=== PATIENT | female | born 1990 | race Caucasian/White ===

== ENCOUNTER 2017-12-18 14:34 | Emergency (ER) | payer MEDICAID, SELFPAY ==
[2017-12-18 14:38] VITALS: BP 148/96; PULSE 100; RESP 16; TEMP 37; O2SAT 100
--- NOTE | 2017-12-18 14:43 | W.ED.GENAD ---
Discharge Plan Discharge Details Chief Complaint: Laceration Primary Care Provider: Mi Morales ED Provider: Mikel Yoon Home Meds and New Rx's Prescriptions: No Action lisdexamfetamine [Vyvanse] 60 MG capsule 60 mg PO DAILY RF: 0 buprenorphine-naloxone [Suboxone] 1 EACH film 14 mg PO UNKNOWN RF: 0 Medical Decision Making MDM Narrative Medical decision making narrative: 27-year-old female presents with superficial laceration to right forearm that does not penetrate through the depth of the dermis. No other injury. Anesthetized and examined in a bloodless field without evidence of foreign body. Repaired with tissue adhesive. To rest in the emergency department. Discussed home care as well as return precautions with the patient. She is stable for discharge to home. HPI - General Adult General Mode of arrival: ambulatory. Date/Time Provider Initiated Documentation: 12/18/17 14:37. Limitations to Documentation: no limitations. Information obtained by: patient. History of Present Illness 27 year old F presents to the emergency department with the chief complaint of Right arm laceration, described as mild, Quality is described as aching, and is localized to the right and upper extremity. Patient started experiencing this minute(s) and it has been constant. No relieving factors improve symptom(s), No exacerbating factors reported . Patient notes no other symptoms.. HPI Narrative: This is a 27-year-old female who talon her right arm on a sharp vase at home and suffered a small laceration to the mid forearm. No other injury. Bleeding improved with pressure. She states her tetanus status is up-to-date. She denies any numbness or tingling Related Data Home Medications Medication Instructions Recorded Confirmed buprenorphine-naloxone [Suboxone] 14 mg PO UNKNOWN 10/27/16 12/18/17 lisdexamfetamine [Vyvanse] 60 mg PO DAILY 10/27/16 12/18/17 Allergies Allergy/AdvReac Type Severity Reaction Status Date / Time No Known Allergies Allergy Unverified 12/18/17 14:41 General Stated Complaint: Laceration MARCY: 4 Review of Systems Review of Systems For systems reviewed and otherwise negative PFSH Social History Smoking/Tobacco Use Status: Current-Occasional Exam Narrative Exam Narrative: GEN: awake, alert, oriented 3. Pleasant, well groomed, interactive. HEAD: Normocephalic, atraumatic ENT: Mucous membranes moist, oropharynx unremarkable, External ear exam unremarkable EYES: PERRL, EOMI NECK: Full ROM, no HENNA, no menigismus EXT: Full ROM, no edema, no rash. Superficial abrasion/laceration, 0.5 cm, mid right ulnar forearm. Examined in a bloodless field without evidence of foreign body Neuro: Grossly normal neurologic exam, conversant, interactive. Psych: Speech fluent, thoughts congruent, affect normal Course Vital Signs Temperature 37.0 C 12/18/17 14:38 Pulse 100 H 12/18/17 14:38 Respiratory Rate 16 12/18/17 14:38 Blood Pressure 148/96 H 12/18/17 14:38 Pulse Oximetry 100 12/18/17 14:38 Temperature 37.0 C 12/18/17 14:38 Pulse 100 H 12/18/17 14:38 Respiratory Rate 16 12/18/17 14:38 Blood Pressure 148/96 H 12/18/17 14:38 Pulse Oximetry 100 12/18/17 14:38 Procedures Laceration Laceration 1: Site: upper extremity Side (If applicable): right Size (cm): 0.5 Description: linear Depth: simple, single layer Pre-repair: wound explored Skin layer closed with: other (Tissue adhesive)
--- NOTE | 2017-12-18 14:46 | ED.GENADUL_ITS ---
Discharge Plan Discharge Details Chief Complaint: Laceration Primary Care Provider: Mi Morales ED Provider: Mikel Yoon Home Meds and New Rx's Prescriptions: No Action lisdexamfetamine [Vyvanse] 60 MG capsule 60 mg PO DAILY RF: 0 buprenorphine-naloxone [Suboxone] 1 EACH film 14 mg PO UNKNOWN RF: 0 Medical Decision Making MDM Narrative Medical decision making narrative: 27-year-old female presents with superficial laceration to right forearm that does not penetrate through the depth of the dermis. No other injury. Anesthetized and examined in a bloodless field without evidence of foreign body. Repaired with tissue adhesive. To rest in the emergency department. Discussed home care as well as return precautions with the patient. She is stable for discharge to home. HPI - General Adult General Mode of arrival: ambulatory . Date/Time Provider Initiated Documentation: 12/18/17 14:37 . Limitations to Documentation: no limitations . Information obtained by: patient . History of Present Illness 27 year old F presents to the emergency department with the chief complaint of Right arm laceration, described as mild, Quality is described as aching, and is localized to the right and upper extremity. Patient started experiencing this minute(s) and it has been constant. No relieving factors improve symptom(s), No exacerbating factors reported . Patient notes no other symptoms.. HPI Narrative: This is a 27-year-old female who talon her right arm on a sharp vase at home and suffered a small laceration to the mid forearm. No other injury. Bleeding improved with pressure. She states her tetanus status is up- to-date. She denies any numbness or tingling Related Data Home Medications Medication Instructions Recorded Confirmed buprenorphine-naloxone [Suboxone] 14 mg PO UNKNOWN 10/27/16 12/18/17 lisdexamfetamine [Vyvanse] 60 mg PO DAILY 10/27/16 12/18/17 Allergies Allergy/AdvReac Type Severity Reaction Status Date / Time No Known Allergies Allergy Unverified 12/18/17 14:41 General Stated Complaint: Laceration MARCY: 4 Review of Systems Review of Systems For systems reviewed and otherwise negative PFSH Social History Smoking/Tobacco Use Status: Current-Occasional Exam Narrative Exam Narrative: GEN: awake, alert, oriented 3. Pleasant, well groomed, interactive. HEAD: Normocephalic, atraumatic ENT: Mucous membranes moist, oropharynx unremarkable, External ear exam unremarkable EYES: PERRL, EOMI NECK: Full ROM, no HENNA, no menigismus EXT: Full ROM, no edema, no rash. Superficial abrasion/laceration, 0.5 cm, mid right ulnar forearm. Examined in a bloodless field without evidence of foreign body Neuro: Grossly normal neurologic exam, conversant, interactive. Psych: Speech fluent, thoughts congruent, affect normal Course Vital Signs Temperature 37.0 C 12/18/17 14:38 Pulse 100 H 12/18/17 14:38 Respiratory Rate 16 12/18/17 14:38 Blood Pressure 148/96 H 12/18/17 14:38 Pulse Oximetry 100 12/18/17 14:38 Temperature 37.0 C 12/18/17 14:38 Pulse 100 H 12/18/17 14:38 Respiratory Rate 16 12/18/17 14:38 Blood Pressure 148/96 H 12/18/17 14:38 Pulse Oximetry 100 12/18/17 14:38 Procedures Laceration Laceration 1: Site: upper extremity Side (If applicable): right Size (cm): 0.5 Description: linear Depth: simple, single layer Pre-repair: wound explored Skin layer closed with: other (Tissue adhesive)
== END 2017-12-18 14:53 | disposition home or self-care (01) ==
LOC: ER 15:00
PROVIDERS: Emergency Provider Emergency Medicine; PCP Internal Medicine
DX: S51.811A Laceration without foreign body of right forearm, initial encounter (principal); W26.8XXA Contact with other sharp object(s), not elsewhere classified, initial encounter
CPT/HCPCS: 12001

== ENCOUNTER 2018-08-20 16:03 | Emergency (ER) | payer MEDICAID, SELFPAY ==
[2018-08-20 16:09] VITALS: BP 132/89; PULSE 109; RESP 22; TEMP 36.9; O2SAT 100
--- NOTE | 2018-08-20 16:40 | W.ED.GENAD ---
Discharge Plan Disposition Patient Disposition: HOME Condition: Improving Discharge Details Chief Complaint: DentalOral Clinical Impression: Dental abscess Primary Care Provider: Mi Morales ED Provider: Mikel Yoon Home Meds and New Rx's Prescriptions: No Action loratadine [Claritin] 10 mg Tablet 10 mg PO PRN PRNRF: 0 fluoxetine [Prozac] 20 mg Capsule 20 mg PO DAILY AM RF: 0 Vyvanse 60 MG capsule 60 mg PO DAILY RF: 0 buprenorphine-naloxone [Suboxone] 1 EACH film 14 mg PO UNKNOWN RF: 0 Discharge Instructions Instructions: Dental Abscess (ED) Additional Instructions: Warm salt water gargles 4-6 times daily. Please see enclosed dental referral sheet if you wish to change to your dentist. Take penicillin as prescribed. Return for any acute concern. Medical Decision Making 28-year-old female with small left floor of the mouth dental abscess that appears to have drained. There is no large area of fluctuance. I will place her on penicillin, she will use salt water gargles at home. She will follow-up with dentistry. She is stable for outpatient management. HPI General Mode of arrival: ambulatory. Date/Time Provider Initiated Documentation: 08/20/18 16:34. Limitations to Documentation: no limitations. Information obtained by: patient. History of Present Illness 28 year old F presents to the emergency department with the chief complaint of Small abscess on floor of mouth, described as similar to prior episodes, Quality is described as dull and constant, and is localized to the mouth and left. Patient reports no radiation. Patient started experiencing this hour(s) and it has been constant. No relieving factors improve symptom(s), No exacerbating factors reported . Patient notes no other symptoms.. Patient did receive the following treatments prior to arrival, none Related Data Home Medications Medication Instructions Recorded Confirmed Vyvanse 60 mg PO DAILY 10/27/16 08/20/18 buprenorphine-naloxone [Suboxone] 14 mg PO UNKNOWN 10/27/16 08/20/18 fluoxetine [Prozac] 20 mg PO DAILY AM 08/20/18 08/20/18 loratadine [Claritin] 10 mg PO PRN PRN 08/20/18 08/20/18 Allergies Allergy/AdvReac Type Severity Reaction Status Date / Time No Known Allergies Allergy Unverified 08/20/18 16:13 General Stated Complaint: DentalOral MARCY: 4 Review of Systems Review of Systems No fever, vomiting, change to voice or swallowing PFSH Social History Smoking/Tobacco Use Status: Current-Occasional Drug use: Never Do you feel safe in your relationship?: Yes Exam Narrative Exam Narrative: GEN: awake, alert, oriented 3. Pleasant, well groomed, interactive. HEAD: Normocephalic, atraumatic ENT: Mucous membranes moist, oropharynx with discrete swelling left mandibular premolar area on the lingual aspect without discharge or fluctuance. Tympanic membranes clear, External ear exam unremarkable EYES: PERRL, EOMI NECK: Full ROM, no HENNA, no menigismus EXT: Full ROM, no edema, no rash Neuro: Grossly normal neurologic exam, conversant, interactive. Psych: Speech fluent, thoughts congruent, affect anxious Course Vital Signs Temperature 36.9 C 08/20/18 16:09 Pulse 109 H 08/20/18 16:09 Respiratory Rate 22 08/20/18 16:09 Blood Pressure 132/89 08/20/18 16:09 Pulse Oximetry 100 08/20/18 16:09 Temperature 36.9 C 08/20/18 16:09 Pulse 109 H 08/20/18 16:09 Respiratory Rate 22 08/20/18 16:09 Respiratory Effort 08/20/18 16:17 Blood Pressure 132/89 08/20/18 16:09 Blood Pressure Position Sitting 08/20/18 16:09 Pulse Oximetry 100 08/20/18 16:09 Oxygen Delivery Method Room Air 08/20/18 16:09 Oxygen Flow Rate 0 08/20/18 16:09 Pain Level 1 08/20/18 16:38
--- NOTE | 2018-08-20 16:44 | ED.GENADUL_ITS ---
Discharge Plan Disposition Patient Disposition: HOME Condition: Improving Discharge Details Chief Complaint: DentalOral Clinical Impression: Dental abscess Primary Care Provider: Mi Morales ED Provider: Mikel Yoon Home Meds and New Rx's Prescriptions: No Action loratadine [Claritin] 10 mg Tablet 10 mg PO PRN PRNRF: 0 fluoxetine [Prozac] 20 mg Capsule 20 mg PO DAILY AM RF: 0 Vyvanse 60 MG capsule 60 mg PO DAILY RF: 0 buprenorphine-naloxone [Suboxone] 1 EACH film 14 mg PO UNKNOWN RF: 0 Discharge Instructions Instructions: Dental Abscess (ED) Additional Instructions: Warm salt water gargles 4-6 times daily. Please see enclosed dental referral sheet if you wish to change to your dentist. Take penicillin as prescribed. Return for any acute concern. Medical Decision Making 28-year-old female with small left floor of the mouth dental abscess that appears to have drained. There is no large area of fluctuance. I will place her on penicillin, she will use salt water gargles at home. She will follow-up with dentistry. She is stable for outpatient management. HPI General Mode of arrival: ambulatory . Date/Time Provider Initiated Documentation: 08/20/18 16:34 . Limitations to Documentation: no limitations . Information obtained by: patient . History of Present Illness 28 year old F presents to the emergency department with the chief complaint of Small abscess on floor of mouth, described as similar to prior episodes, Quality is described as dull and constant, and is localized to the mouth and left. Patient reports no radiation. Patient started experiencing this hour(s) and it has been constant. No relieving factors improve symptom(s), No exacerbating factors reported . Patient notes no other symptoms.. Patient did receive the following treatments prior to arrival, none Related Data Home Medications Medication Instructions Recorded Confirmed Vyvanse 60 mg PO DAILY 10/27/16 08/20/18 buprenorphine-naloxone [Suboxone] 14 mg PO UNKNOWN 10/27/16 08/20/18 fluoxetine [Prozac] 20 mg PO DAILY AM 08/20/18 08/20/18 loratadine [Claritin] 10 mg PO PRN PRN 08/20/18 08/20/18 Allergies Allergy/AdvReac Type Severity Reaction Status Date / Time No Known Allergies Allergy Unverified 08/20/18 16:13 General Stated Complaint: DentalOral MARCY: 4 Review of Systems Review of Systems No fever, vomiting, change to voice or swallowing PFSH Social History Smoking/Tobacco Use Status: Current-Occasional Drug use: Never Do you feel safe in your relationship?: Yes Exam Narrative Exam Narrative: GEN: awake, alert, oriented 3. Pleasant, well groomed, interactive. HEAD: Normocephalic, atraumatic ENT: Mucous membranes moist, oropharynx with discrete swelling left mandibular premolar area on the lingual aspect without discharge or fluctuance. Tympanic membranes clear, External ear exam unremarkable EYES: PERRL, EOMI NECK: Full ROM, no HENNA, no menigismus EXT: Full ROM, no edema, no rash Neuro: Grossly normal neurologic exam, conversant, interactive. Psych: Speech fluent, thoughts congruent, affect anxious Course Vital Signs Temperature 36.9 C 08/20/18 16:09 Pulse 109 H 08/20/18 16:09 Respiratory Rate 22 08/20/18 16:09 Blood Pressure 132/89 08/20/18 16:09 Pulse Oximetry 100 08/20/18 16:09 Temperature 36.9 C 08/20/18 16:09 Pulse 109 H 08/20/18 16:09 Respiratory Rate 22 08/20/18 16:09 Respiratory Effort 08/20/18 16:17 Blood Pressure 132/89 08/20/18 16:09 Blood Pressure Position Sitting 08/20/18 16:09 Pulse Oximetry 100 08/20/18 16:09 Oxygen Delivery Method Room Air 08/20/18 16:09 Oxygen Flow Rate 0 08/20/18 16:09 Pain Level 1 08/20/18 16:38
[2018-08-20] MEDS: Penicillin V POTASSIUM 500 MG TAB (17:13)
== END 2018-08-20 17:15 | disposition home or self-care (01) ==
PROVIDERS: Emergency Provider Emergency Medicine; PCP Nurse Practitioner Family
DX: K04.7 Periapical abscess without sinus (principal)
CPT/HCPCS: 99283

== ENCOUNTER 2019-03-27 18:44 | Outpatient (REF) | payer MEDICAID, SELFPAY | END 2019-03-27 19:04 | LOC: NCHCN 18:44 | PROVIDERS: PCP Nurse Practitioner Family; Visit Provider Nurse Practitioner Family | DX: R30.0 Dysuria (principal) | CPT/HCPCS: 87077; 87086; 87186 ==

== ENCOUNTER 2019-05-22 18:11 | Emergency (ER) | payer MEDICAID, SELFPAY ==
[2019-05-22 18:20] VITALS: BP 135/81; PULSE 91; RESP 18; TEMP 37.2; O2SAT 100
[2019-05-22 18:39] LABS: Bilirubin Negative (Negative); Blood Large (Negative); Clarity Cloudy (Clear); Glucose Negative (Negative); Ketones Negative (Negative); Leukocyte Esterase Moderate (Negative); Nitrite Negative (Negative); Urobilinogen 0.2 EU/dL (Up TO 0.2); pH 8.5 (5-8)
[2019-05-22 18:48] LABS: Bacteria Moderate HPF (Negative); C & S Indicated? Yes; Crystals Negative HPF (Negative); Epithelial Cells Few HPF (Negative); Mucus Negative (Negative); Other Cells Mod Transitional (Negative); RBC >50 HPF (0-2); WBC >50 HPF (0-5)
--- NOTE | 2019-05-22 19:00 | W.ED.GENAD ---
Discharge Plan Disposition Patient Disposition: HOME Condition: Stable Discharge Details Chief Complaint: Urinary Clinical Impression: UTI (urinary tract infection) Primary Care Provider: Renetta Coronel ED Provider: Fabiola Renee Home Meds and New Rx's Prescriptions: New cephalexin [Keflex] 500 mg capsule 500 mg PO QID Qty: 28 RF: 0 phenazopyridine [Pyridium] 200 mg tablet 200 mg PO TID PRN (Reason: pain) Qty: 6 RF: 0 No Action loratadine [Claritin] 10 mg Tablet 10 mg PO PRN PRNRF: 0 fluoxetine [Prozac] 20 mg Capsule 20 mg PO DAILY AM RF: 0 Vyvanse 60 MG capsule 60 mg PO DAILY RF: 0 buprenorphine-naloxone [Suboxone] 1 EACH film 14 mg PO UNKNOWN RF: 0 Discharge Instructions Instructions: Urinary Tract Infection in Women (ED) Additional Instructions: Drink plenty of fluids. Use antibiotic as prescribed. Use Pyridium as prescribed. This will stay in the urine a reddish-orange color. Follow-up with PCP next week to recheck urine testing. Urine culture pending. We will call for any results requiring change in antibiotic. Return to the emergency room for any fever, increase in ill feeling, abdominal or back pain worsening symptoms or alarming symptoms sooner if needed as discussed Medical Decision Making This is a pleasant 28-year-old sexually active woman who presents for complaints of dysuria, urgency, frequency and hematuria which was noted today. Denies associated abdominal or back pain. On exam patient has no notable bladder tenderness or CVA tenderness bilaterally. Patient is nontoxic-appearing, vital signs reviewed and normal. Patient denies associated vaginal discharge, bleeding or concerns. Patient's [id number] testing is negative. Patient's urinalysis is remarkable for urinary tract infection. We will treat appropriately with antibiotics. Patient does report she was on Bactrim approximately 1 month ago and did report side effects when taking Bactrim will change to Keflex. Will also provide Pyridium for patient's discomfort. Patient has taken Pyridium in the past and is aware of discoloration of urine. Patient has been pushing appropriate fluids. Patient appears well in general. Patient likely is experiencing UTIs due to limited range of motion of her shoulders bilaterally causing difficulty wiping from front to back. Discussed sits baths or showering after bowel movements to prevent urinary tract infections. Patient reports her understanding. Patient does plan to follow-up with physical therapy for her shoulder issues. Patient requesting discharge home. The patient was stable and requested discharge. Prior to discharge, my usual and customary return precautions were reviewed with the patient - this included follow-up instructions and reasons to return to the Emergency Department if conditions worsens, does not improve as expected, or other new concerns arise. HPI General Date/Time Provider Initiated Documentation: 05/22/19 18:36. HPI Narrative: This is a 28-year-old patient presenting to the emergency room for complaints of dysuria, urgency, frequency and hematuria. Patient reports onset of symptoms today. Patient reports she did have a urinary tract infection approximately 1 month ago and did not feel well when taking Bactrim. Patient denies fever, chills, nausea, vomiting associated. Denies any abdominal or back pain. Denies any vaginal discharge or bleeding. Denies any malaise or ill feeling. No other concerns or complaints at this time. Patient does report bilateral shoulder injuries which makes it very difficult for her to wipe after moving her bowels therefore she wipes back to front due to her limited range of motion. Patient also reports intercourse recently without bathing after. Denies any other concerns or complaints. Related Data Home Medications Medication Instructions Recorded Confirmed Vyvanse 60 mg PO DAILY 10/27/16 05/22/19 buprenorphine-naloxone [Suboxone] 14 mg PO UNKNOWN 10/27/16 05/22/19 fluoxetine [Prozac] 20 mg PO DAILY AM 08/20/18 05/22/19 loratadine [Claritin] 10 mg PO PRN PRN 08/20/18 05/22/19 cephalexin [Keflex] 500 mg PO QID #28 cap 05/22/19 phenazopyridine [Pyridium] 200 mg PO TID PRN #6 tab 05/22/19 Previous Rx's Medication Instructions Recorded cephalexin [Keflex] 500 mg PO QID #28 cap 05/22/19 phenazopyridine [Pyridium] 200 mg PO TID PRN #6 tab 05/22/19 Allergies Allergy/AdvReac Type Severity Reaction Status Date / Time No Known Allergies Allergy Unverified 05/22/19 18:25 General Stated Complaint: Urinary MARCY: 4 Review of Systems All systems reviewed & are unremarkable except as noted in HPI and below Constitutional Constitutional: Denies chills, Denies fatigue, Denies fever(s), Denies headache(s) and Denies malaise ENT Ears, Nose, Mouth, and Throat: Denies headache(s) Gastrointestinal Gastrointestinal: Denies abdominal pain, Denies nausea and Denies vomiting Genitourinary Genitourinary: Reports hematuria, Reports dysuria, Denies pelvic pain, Denies flank pain, Reports urinary urgency, Denies vaginal discharge, Denies vaginal dryness, Denies vaginal odor and Denies vaginal pruritus Neurologic Neurologic: Denies headache(s) Endocrine Endocrine: Denies fatigue [facility] Social History Smoking/Tobacco Use Status: Current every day Alcohol Intake: never Drug use: Never Do you feel safe in your relationship?: Yes Exam Narrative Exam Narrative: CONST: Healthy appearing patient, in no acute distress. Well hydrated. Alert and oriented. NECK: Normal visual inspection. FROM. Trachea midline. No Midline tenderness. CHEST: Normal insepection of the chest. Abdomen: Bowel sounds present in all 4 quadrants, abdomen is soft and nontender throughout. No peritoneal signs, rebound or guarding Back: No CVA tenderness noted bilaterally. SKIN: Normal. Dry. No rashes. NEURO: Alert and awake. Speech clear. PSYCH: Normal affect. Cooperative. Course Vital Signs Vital signs: Vital Signs Temperature 37.2 C 05/22/19 18:20 Pulse 91 H 05/22/19 18:20 Respiratory Rate 18 05/22/19 18:20 Blood Pressure 135/81 05/22/19 18:20 Pulse Oximetry 100 05/22/19 18:20 Temperature 37.2 C 05/22/19 18:20 Temperature Source Temporal Artery Scan 05/22/19 18:20 Pulse 91 H 05/22/19 18:20 Respiratory Rate 18 05/22/19 18:20 Respiratory Effort Non-Labored 05/22/19 18:20 Blood Pressure 135/81 05/22/19 18:20 Blood Pressure Position Sitting 05/22/19 18:20 Pulse Oximetry 100 05/22/19 18:20 Oxygen Delivery Method Room Air 05/22/19 18:20 Oxygen Flow Rate 0 05/22/19 18:20 Pain Level 2 05/22/19 18:20 Lab/Test Results Lab/Test Results: 05/22/19 18:30 Urine - Reflex from Ua Urine Culture - Pending Laboratory Tests Range/Units 05/22/19 18:30 Urine Color (Yellow) Yellow Urine Clarity (Clear) Cloudy Urine pH (5-8) 8.5 H Ur Specific [place] (1.005-1.025) 1.020 Urine Protein (Negative) mg/dL 100 H Urine Ketones (Negative) mg/dL Negative Urine Blood (Negative) Large H Urine Nitrite (Negative) Negative Urine Bilirubin (Negative) Negative Urine Urobilinogen (Up TO 0.2) EU/dL 0.2 Ur Leukocyte Esterase (Negative) Moderate H Urine RBC (0-2) HPF >50 H Urine WBC (0-5) HPF >50 H Ur Epithelial Cells (Negative) HPF Few Urine Crystals (Negative) HPF Negative Urine Bacteria (Negative) HPF Moderate Urine Mucus (Negative) Negative Urine Other (Negative) Mod transitional Ur Culture Indicated? Yes Urine Glucose (Negative) mg/dL Negative POC- Test(urine) Negative
== END 2019-05-22 19:10 | disposition home or self-care (01) ==
PROVIDERS: Emergency Provider Physician Assistant; PCP Nurse Practitioner Family
DX: N39.0 Urinary tract infection, site not specified (principal); B95.7 Other staphylococcus as the cause of diseases classified elsewhere; B96.29 Other Escherichia coli [E. coli] as the cause of diseases classified elsewhere
CPT/HCPCS: 81025; 87077; 99283; 81003; 81015; 87086; 87186

== ENCOUNTER 2020-05-27 16:37 | Outpatient (REF) | payer MEDICAID, SELFPAY ==
[2020-06-03 09:38] LABS: Amphetamine 4087 ng/mL (Cutoff: 25); Amphetamines Interpretation Positive.; MDA (Ecstasy Metabolite) Negative ng/mL (Cutoff: 25); MDMA (Ecstasy) Negative ng/mL (Cutoff: 25); Methamphetamine Negative ng/mL (Cutoff: 25); Phentermine Negative ng/mL (Cutoff: 25); Pseudoephedrine/Ephedrine Negative ng/mL (Cutoff: 25)
== END 2020-05-27 16:38 | disposition home or self-care (01) ==
LOC: NCHCN 16:37
PROVIDERS: PCP Nurse Practitioner Family; Visit Provider Nurse Practitioner Family
DX: F90.1 Attention-deficit hyperactivity disorder, predominantly hyperactive type (principal); M25.511 Pain in right shoulder; Z51.81 Encounter for therapeutic drug level monitoring
CPT/HCPCS: 80324

== ENCOUNTER 2020-07-06 14:08 | Emergency (ER) | payer MEDICAID, SELFPAY ==
[2020-07-06 14:13] VITALS: BP 146/80; PULSE 95; RESP 15; TEMP 36.5; O2SAT 99
--- NOTE | 2020-07-06 14:16 | W.ED.GENAD ---
Discharge Plan Disposition Patient Disposition: HOME Condition: Stable Discharge Details Clinical Impression: Dental infection, Caries Primary Care Provider: Renetta Coronel ED Provider: Nova Richardson Home Meds and New Rx's Prescriptions: New penicillin V potassium 500 mg tablet 500 mg PO QID 7 Days Qty: 28 RF: 0 Continued loratadine [Claritin] 10 mg Tablet 10 mg PO PRN PRNRF: 0 fluoxetine [Prozac] 20 mg Capsule 20 mg PO DAILY AM RF: 0 Vyvanse 60 MG capsule 60 mg PO DAILY RF: 0 buprenorphine-naloxone [Suboxone] 1 EACH film 14 mg PO UNKNOWN RF: 0 Discharge Instructions Instructions: Benzocaine (By mouth), Dental Abscess (ED) Additional Instructions: Encourage hydration. You may continue with Tylenol and/or ibuprofen as needed for discomfort. We are sending you home with topical benzocaine. You may use this 3 times daily to help with discomfort. You may apply this topically prior to brushing her teeth and performing oral hygiene. Please take the antibiotics as prescribed. Even if symptoms improve, please take the entire course. Attached is a list of local dentist. Please begin calling on Wednesday to schedule follow-up appointment. You will need follow-up with a dentist for definitive care of your cavities. If you develop fever/chills, swelling or other new/worsening symptoms please seek care urgently once again. Referrals: Renetta Coronel [Primary Care Provider] - Discharge Data Discharge Date/Time-TO BE ENTERED AT DEPARTURE: 07/06/20 14:45 Medical Decision Making Patient is a pleasant 29-year-old female presents today with chief complaint of dental pain. She reports that she has had worsening dental pain for the past few weeks. States that she has bad teeth. Reports that she stopped taking care of myself. This includes not brushing her teeth. Patient states that now she is not brushing her teeth because of the discomfort. She denies any fevers or chills. No swelling. Patient has not been seen by dentist in quite some time. On exam, patient appears nontoxic. She does appear anxious. Patient has poor dentition but notable caries tooth #22 and 21 tooth. It is along the buccal side of the #22 teeth where the pain is most prominent. No swelling or fluctuance to suggest an abscess. No pain along the lingual side. No lymphadenopathy or swelling is noted. No abnormalities of posterior oropharynx. UPT negative. Patient will be treated with p.o. penicillin. Will give benzocaine to help with discomfort that she is able to brush her teeth afterwards. I did encourage dental hygiene. I advise follow-up with dentist and local dentist was given. We discussed return precautions. All of her questions and concerns were addressed, she is in agreement with this plan. HPI General Mode of arrival: ambulatory. Date/Time Provider Initiated Documentation: 07/06/20 14:16. Limitations to Documentation: no limitations. Information obtained by: patient and RN notes reviewed. History of Present Illness 29 year old F presents to the emergency department with the chief complaint of left lower dental pain, described as mild, Quality is described as aching, and is localized to the mouth. Patient reports no radiation. Patient started experiencing this day(s) and it has been constant. No relieving factors improve symptom(s), Eating worsens symptoms . Patient notes no other symptoms.. Patient did receive the following treatments prior to arrival, none Related Data Home Medications Medication Instructions Recorded Confirmed Vyvanse 60 mg PO DAILY 10/27/16 07/06/20 buprenorphine-naloxone [Suboxone] 14 mg PO UNKNOWN 10/27/16 07/06/20 fluoxetine [Prozac] 20 mg PO DAILY AM 08/20/18 07/06/20 loratadine [Claritin] 10 mg PO PRN PRN 08/20/18 07/06/20 penicillin V potassium 500 mg PO QID 7 Days #28 tab 07/06/20 Previous Rx's Medication Instructions Recorded penicillin V potassium 500 mg PO QID 7 Days #28 tab 07/06/20 Allergies Allergy/AdvReac Type Severity Reaction Status Date / Time No Known Allergies Allergy Unverified 07/06/20 14:17 General MARCY: 4 Review of Systems Constitutional Constitutional: Reports as per HPI, Denies chills, Denies fatigue, Denies fever(s), Denies headache(s) and Denies poor appetite Eyes Eyes: Denies change in vision and Denies irritation ENT Ears, Nose, Mouth, and Throat: Reports as per HPI, Reports dental pain, Denies dysphagia, Denies dizziness, Denies dry mouth, Denies ear discharge, Denies otalgia, Reports facial pain, Denies headache(s), Denies hoarseness, Denies lip swelling, Denies nasal congestion, Denies odynophagia and Denies sore throat Cardiovascular Cardiovascular: Reports as per HPI and Denies chest pain Respiratory Respiratory: Reports as per HPI and Denies cough Gastrointestinal Gastrointestinal: Reports as per HPI, Denies dysphagia, Denies nausea, Denies odynophagia and Denies vomiting Integumentary/Breasts Skin/Breast: Reports as per HPI, Denies erythema, Denies rash and Denies skin pain Neurologic Neurologic: Reports as per HPI, Denies dizziness and Denies headache(s) Endocrine Endocrine: Denies fatigue Allergic/Immunologic Allergic/Immunologic: Denies lip swelling [facility] Social History Smoking/Tobacco Use Status: Current every day Smoking risk assessment performed?: Yes Alcohol Intake: never Drug use: Never Substance use type: does not use Do you feel safe at home: Yes Do you feel safe in your relationship?: Yes Exam Const General: cooperative, healthy appearing, comfortable, no acute distress, well developed and well groomed Nutritional Appearance: average body habitus and well nourished Orientation: alert and awake [facility] Head: normal to inspection, normocephalic and atraumatic Ears: hearing grossly normal bilaterally, external ears normal and TM's normal bilaterally General nose exam: external nose normal and nares normal Face and sinus: normal facial exam, sinuses nontender and face symmetric Mouth: oral mucosae normal, lip normal, tongue normal, oropharynx normal, moist mucous membranes, no muffled voice, no trismus and No restricted motion Teeth and gingiva: poor dentition (multiple caries) and other (area of pain #22&23 at base along buccal side) Throat: posterior oropharynx normal, tonsils normal and uvula midline Eyes General: appearance normal, both eyes and all related structures Neck Neck: normal visual inspection, full ROM, no lymphadenopathy, supple and no anterior neck swelling Resp Effort & Inspection: normal respiratory effort, able to speak in complete sentences and no respiratory distress Auscultation: clear to auscultation bilaterally, no rales, no rhonchi and no wheezes Cardio Rate: regular rate Rhythm: regular rhythm Heart Sounds: S1 normal and S2 normal Skin General skin exam: no rashes or lesions noted Neuro General: patient alert and patient awake Cognition: normal cognition Speech: speech normal Gait: normal gait Psych Appearance: grossly normal and well kempt Mental Status: mental status grossly normal Speech and Movement: speech and movement normal
[2020-07-06] MEDS: Benzocaine 20% Gel 30 GM JAR MM (14:40)
== END 2020-07-06 14:45 | disposition home or self-care (01) ==
PROVIDERS: Emergency Provider Physician Assistant; PCP Nurse Practitioner Family
DX: R68.84 Jaw pain (principal); K04.7 Periapical abscess without sinus
CPT/HCPCS: 81025; 99283

== ENCOUNTER 2020-08-27 16:08 | Outpatient (REF) | payer MEDICAID, SELFPAY ==
[2020-08-27 18:58] LABS: HCT 43.8 % (36.0-46.0); HGB 14.8 g/dL (11.2-15.7); MCH 31.4 pg (27.0-33.0); MCHC 33.8 % (32.0-36.0); MPV 9.3 fL (8.0-11.0); Platelet Count 272 10^3/uL (130-400); RBC 4.71 10^6/uL (3.93-5.22); RDW 11.7 % (11.7-14.6); WBC 5.66 10^3/uL (4.4-10.8)
[2020-08-27 19:08] LABS: Anion Gap 8.8 mmol/L (3-11); BUN 13 mg/dL (7-18); CO2 29.2 mmol/L (21.0-32.0); CREATININE 0.9 mg/dL (0.55-1.02); Calcium 9.5 mg/dL (8.5-10.1); Chloride 103 mmol/L (98-107); Glucose 133 mg/dL (74-106); Potassium 4.1 mmol/L (3.5-5.1); Sodium 141 mmol/L (136-145); TSH 5.12 uIU/mL (0.36-3.74)
[2020-08-27 19:30] LABS: Hemoglobin A1C 5.1 % (<5.7)
[2020-08-29 02:54] LABS: Vitamin D 25 Total 17.2 ng/mL (30-100)
[2020-08-29 09:42] LABS: Lyme Ab w Rflx to Lyme Confirm Negative (Negative)
[2020-08-29 14:40] LABS: ANA Interpretation Positive (Negative); ANA Titer Pattern 1:160 Homogeneous
== END 2020-08-27 16:09 | disposition home or self-care (01) ==
LOC: NCHCN 16:08
PROVIDERS: PCP Nurse Practitioner Family; Visit Provider Nurse Practitioner Family
DX: F90.1 Attention-deficit hyperactivity disorder, predominantly hyperactive type (principal); F43.10 Post-traumatic stress disorder, unspecified; F41.8 Other specified anxiety disorders; M25.59 Pain in other specified joint; E55.9 Vitamin D deficiency, unspecified
CPT/HCPCS: 80048; 82306; 85027; 83036; 84443; 86038; 86618

== ENCOUNTER 2020-11-02 02:07 | Emergency (ER) | payer MEDICAID, SELFPAY ==
[2020-11-02 02:11] VITALS: BP 135/95; PULSE 87; RESP 18; TEMP 37.1; O2SAT 99
--- NOTE | 2020-11-02 02:16 | W.ED.GENAD ---
Discharge Plan Disposition Patient Disposition: HOME Condition: Good Discharge Details Clinical Impression: Dental infection Primary Care Provider: Renetta Coronel ED Provider: Jignesh Cherry Home Meds and New Rx's Prescriptions: New amoxicillin 500 mg capsule 500 mg PO QID 7 Days Qty: 28 RF: 0 Continued loratadine [Claritin] 10 mg Tablet 10 mg PO PRN PRNRF: 0 fluoxetine [Prozac] 20 mg Capsule 20 mg PO DAILY AM RF: 0 Vyvanse 60 MG capsule 60 mg PO DAILY RF: 0 buprenorphine-naloxone [Suboxone] 1 EACH film 14 mg PO UNKNOWN RF: 0 No Action levothyroxine 25 mcg tablet 25 mcg PO DAILY RF: 0 Discharge Instructions Instructions: Dental Abscess (ED) Additional Instructions: The block we administered should help improve your pain. Please take 800 mg of ibuprofen every 6 hours and 1000 mg of Tylenol every 6 hours to help with the inflammation and pain. These are the maximum doses. Please take the antibiotic as directed to help with the infection in your tooth. The Prescription has been sent to your pharmacy. Please use the dental list that we have provided to contact the dentist for prompt follow-up and evaluation for tooth removal. If you notice any worsening of your symptoms, or any new symptoms such as difficulty swallowing, difficulty breathing, vomiting, diarrhea, fever, chills, shortness of breath, chest pain, numbness, weakness, or fainting , please return immediately to the emergency department for reevaluation. Please follow up with your primary care provider as soon as possible for reassessment and reevaluation. As always, it was a pleasure participating in your medical care today. Referrals: Renetta Coronel [Primary Care Provider] - Discharge Data Discharge Date/Time-TO BE ENTERED AT DEPARTURE: 11/02/20 02:30 Medical Decision Making 30-year-old female with a past medical history of dental caries presents today for evaluation of left lower dental pain. Patient has known history of dental infection, but unfortunately has not been able to follow-up with dentist yet. She presents today for pain in the her left lower teeth that has been present for the last few weeks, but notably worsening in the last few days. She denies any fever or chills. She denies any vomiting or diarrhea. Pain is slightly improved with Tylenol and Motrin. She denies any swelling or drainage. No other complaints at this time. No other modifying factors. Physical exam demonstrates notably poor dentition in the left lower frontal dental teeth, no periapical abscess, no swelling, no signs of airway compromise or Ludewig's angina dental block was offered, patient accepted. Dental block was performed without complication. Patient had complete resolution of her pain. We will give a dose of amoxicillin here and a prescription for home use. We did give dental sheet recommend close follow-up. Recommend he continue Tylenol and Motrin. Discussed red flags which to return. I have extensively reviewed the treatment plan and discharge instructions with the patient. I have addressed all patient concerns at this time. The patient was made aware of what symptoms to monitor for that would warrant a return to the emergency department. Discussed the plan with the patient, they demonstrate verbal understanding and agreement with our assessment and plan at this time. The documentation in this chart was dictated using [employer] dictation software. Please excuse any dictation errors. HPI General Date/Time Provider Initiated Documentation: 11/02/20 02:08. HPI Narrative: 30-year-old female with a past medical history of dental caries presents today for evaluation of left lower dental pain. Patient has known history of dental infection, but unfortunately has not been able to follow-up with dentist yet. She presents today for pain in the her left lower teeth that has been present for the last few weeks, but notably worsening in the last few days. She denies any fever or chills. She denies any vomiting or diarrhea. Pain is slightly improved with Tylenol and Motrin. She denies any swelling or drainage. No other complaints at this time. No other modifying factors. Related Data Home Medications Medication Instructions Recorded Confirmed Vyvanse 60 mg PO DAILY 10/27/16 11/02/20 buprenorphine-naloxone [Suboxone] 14 mg PO UNKNOWN 10/27/16 11/02/20 fluoxetine [Prozac] 20 mg PO DAILY AM 08/20/18 11/02/20 loratadine [Claritin] 10 mg PO PRN PRN 08/20/18 11/02/20 amoxicillin 500 mg PO QID 7 Days #28 cap 11/02/20 levothyroxine 25 mcg PO DAILY 11/02/20 11/02/20 Previous Rx's Medication Instructions Recorded amoxicillin 500 mg PO QID 7 Days #28 cap 11/02/20 Allergies Allergy/AdvReac Type Severity Reaction Status Date / Time No Known Allergies Allergy Unverified 11/02/20 02:17 General MARCY: 4 Review of Systems All systems reviewed & are unremarkable except as noted in HPI and below PFSH Social History Smoking/Tobacco Use Status: Current every day Smoking risk assessment performed?: Yes Alcohol Intake: never Drug use: Never Substance use type: does not use Do you feel safe at home: Yes Do you feel safe in your relationship?: Yes Exam Narrative Exam Narrative: 1.Const: Well-nourished, Well-developed, appearing stated age 2.Eyes: PERRL, no conjunctival injection, and symmetrical lids. 3.ENT: Atraumatic external nose and ears. Moist MM. Neck: Symmetric, trachea midline, No thyromegaly. Notably poor dentition in the left lower frontal teeth. No evidence of periapical abscess or swelling. No signs of airway compromise. No evidence of Ludewig's angina. 4.CVS: +S1/S2, No murmurs or gallops. Peripheral pulses 2+ and equal in all extremities. Brisk capillary refill in all extremities. 5.RESP: Unlabored respiratory effort. Clear to auscultation bilaterally. No wheezes rales or rhonchi 6.GI: Soft, Nontender/Nondistended, No hepatosplenomegaly. No guarding or rebound. 7.MSK: Normocephalic/Atraumatic, Extremities w/o deformity or ttp No cyanosis or clubbing, Normal movement of all extremities 8.Skin: Warm, Dry. No rashes or lesions. 9.Neuro: [employer] II-XII grossly intact. Sensation grossly intact, no focal neurologic deficits. 10.Psych: (AAO) x3. Appropriate mood and affect Procedures Nerve Block Nerve Block 1: Time out performed: Yes Local Anesthetic: Bupivicaine 0.25% Amount of anesthesia used (mL): 5 Side: left Intraoral Nerve Block: inferior alveolar Procedure Successful: Yes Patient Tolerated Procedure: well Complications: none Additional Comments: Time out was taken to identify the correct patient, procedure, and site. Risks and benefits were discussed with the patient and consent was obtained. Direct pressure was held over the area prior to the procedure to reduce painful injection. 5 cc?s of Bupivacaine 0.25% was instilled into the left lower posterior alveolar space with a 27 gauge needle.Complete analgesia was obtained. The patient tolerated the procedure. There were no complications.
[2020-11-02] MEDS: Amoxicillin 500 MG CAP (02:24)
[2020-11-02] MEDS: Bupivacaine 0.5% Pres-Free 30 ML VIAL (02:24)
== END 2020-11-02 02:30 | disposition home or self-care (01) ==
LOC: ER 02:25
PROVIDERS: Emergency Provider Student in an Organized Health Care Education/Training Program; PCP Nurse Practitioner Family
DX: N13.2 Hydronephrosis with renal and ureteral calculous obstruction (principal)
CPT/HCPCS: 36415; 96361; 96365; 96375; 99285

== ENCOUNTER 2020-12-17 17:33 | Outpatient (REF) | payer MEDICAID, SELFPAY ==
[2020-12-17 19:43] LABS: TSH (W/Ref FT4) 3.26 uIU/mL (0.36-3.74)
== END 2020-12-17 17:34 | disposition home or self-care (01) ==
LOC: NCHCN 17:33
PROVIDERS: PCP Nurse Practitioner Family; Visit Provider Nurse Practitioner Family
DX: R94.6 Abnormal results of thyroid function studies (principal)
CPT/HCPCS: 84443

== ENCOUNTER 2021-03-27 10:02 | Emergency (ER) | payer MEDICAID, SELFPAY ==
[2021-03-27 10:07] VITALS: BP 136/78; PULSE 98; RESP 18; TEMP 36.9; O2SAT 100
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
== END 2021-03-27 11:09 | disposition home or self-care (01) ==
PROVIDERS: Emergency Provider Physician Assistant; PCP Nurse Practitioner Family
DX: R68.84 Jaw pain (principal); K08.89 Other specified disorders of teeth and supporting structures
CPT/HCPCS: 99283

== ENCOUNTER 2021-08-13 17:11 | Outpatient (REF) | payer MEDICAID, SELFPAY ==
[2021-08-20 16:51] LABS: Amphetamine 9300 ng/mL
== END 2021-08-13 17:12 | disposition home or self-care (01) ==
LOC: NCHCN 17:11
PROVIDERS: PCP Nurse Practitioner Family; Visit Provider Nurse Practitioner Family
DX: F90.1 Attention-deficit hyperactivity disorder, predominantly hyperactive type (principal); F41.8 Other specified anxiety disorders; R94.6 Abnormal results of thyroid function studies; Z51.81 Encounter for therapeutic drug level monitoring
CPT/HCPCS: 80324

== ENCOUNTER 2021-09-29 06:55 | Emergency (ER) | payer MEDICAID, SELFPAY ==
[2021-09-29 07:02] VITALS: BP 139/89; PULSE 104; RESP 16; TEMP 36.5; O2SAT 99
[2021-09-29] MEDS: Bupivacaine 0.5% Pres-Free 30 ML VIAL IJ (07:07)
--- NOTE | 2021-09-29 07:10 | ED.GENADUL_ITS ---
Discharge Plan Disposition Patient Disposition: HOME Condition: Good Discharge Details Clinical Impression: Pain, dental, Dental caries Primary Care Provider: Renetta Coronel ED Provider: Jignesh Cherry Home Meds and New Rx's Prescriptions: New penicillin V potassium 500 mg tablet 500 mg PO QID 10 Days Qty: 40 0RF No Action fluoxetine 10 mg capsule 10 mg PO DAILY buprenorphine-naloxone [Suboxone] 8-2 mg film 12 mg PO DAILY loratadine [Claritin] 10 mg Tablet 10 mg PO PRN PRN fluoxetine [Prozac] 20 mg Capsule 20 mg PO DAILY AM levothyroxine 25 mcg tablet 25 mcg PO DAILY Label Comments: TAKE 1 TABLET BY MOUTH EVERY MORNING ON AN EMPTY STOMACH Vyvanse 60 MG capsule 60 mg PO DAILY Discharge Instructions Instructions: Dental Caries (ED) Additional Instructions: The block we administered should help improve your pain. Please take 800 mg of ibuprofen every 6 hours and 1000 mg of Tylenol every 6 hours to help with the inflammation and pain. These are the maximum doses. Please take the antibiotic as directed to help with the infection in your tooth. Please use the dental list that we have provided to contact the dentist for prompt follow-up and evaluation for tooth removal. If you notice any worsening of your symptoms, or any new symptoms such as difficulty swallowing, difficulty breathing, vomiting, diarrhea, fever, chills, shortness of breath, chest pain, numbness, weakness, or fainting , please return immediately to the emergency department for reevaluation. Please follow up with your primary care provider as soon as possible for reassessment and reevaluation. As always, it was a pleasure participating in your medical care today. Referrals: Renetta Coronel [Primary Care Provider] - Medical Decision Making 31-year-old female with a past medical history of dental caries presents today for evaluation of right lower dental pain. Patient states is been present for the last few days. She denies fever. Swelling is been present over the last day. She does have a dentist that she is working closely with already. She denies any difficulty swallowing or breathing. No other complaints at this time. No fever or chills otherwise. No other complaints. She has been taking Tylenol and Motrin but this is only slightly improved her pain. Physical exam demonstrates notable dental caries in the right lower teeth. She has swelling in the right lower gum region, but no fluctuance. She was given a posterior inferior alveolar block which demonstrated near complete resolution of her pain after administration. After this 21-gauge needle was used to probe and a small amount of purulent material was removed at the site of the infection, but no large abscess. Patient will be given penicillin for home use, as well as a prescription. Recommend continued NSAIDs at home. Discussed red flags which return. I have extensively reviewed the treatment plan and discharge instructions with the patient. I have addressed all patient concerns at this time. The patient was made aware of what symptoms to monitor for that would warrant a return to the emergency department. Discussed the plan with the patient, they demonstrate verbal understanding and agreement with our assessment and plan at this time. The documentation in this chart was dictated using [employer] dictation software. Please excuse any dictation errors. HPI General Date/Time Provider Initiated Documentation: 09/29/21 06:56 . HPI Narrative: 31-year-old female with a past medical history of dental caries presents today for evaluation of right lower dental pain. Patient states is been present for the last few days. She denies fever. Swelling is been present over the last day. She does have a dentist that she is working closely with already. She denies any difficulty swallowing or breathing. No other complaints at this time. No fever or chills otherwise. No other complaints. She has been taking Tylenol and Motrin but this is only slightly improved her pain. Related Data Home Medications Medication Instructions Recorded Confirmed lisdexamfetamine 60 mg capsule 60 mg PO DAILY 10/27/16 09/29/21 (Vyvanse) fluoxetine 20 mg capsule (Prozac) 20 mg PO DAILY AM 08/20/18 09/29/21 loratadine 10 mg tablet (Claritin) 10 mg PO PRN PRN 08/20/18 09/29/21 levothyroxine 25 mcg tablet 25 mcg PO DAILY 11/02/20 09/29/21 buprenorphine 8 mg-naloxone 2 mg 12 mg PO DAILY 11/20/20 09/29/21 sublingual film (Suboxone) fluoxetine 10 mg capsule 10 mg PO DAILY 11/20/20 09/29/21 penicillin V potassium 500 mg 500 mg PO QID 10 days #40 tabs 09/29/21 tablet Previous Rx's Medication Instructions Recorded penicillin V potassium 500 mg 500 mg PO QID 10 days #40 tabs 09/29/21 tablet Allergies Allergy/AdvReac Type Severity Reaction Status Date / Time No Known Allergies Allergy Unverified 09/29/21 07:08 General Stated Complaint: DentalOral MARCY: 4 Review of Systems All systems reviewed & are unremarkable except as noted in HPI and below PFSH All Active Problems Pain, dental (Acute) Dental caries (Acute) Contraception management (Acute) PMDD (premenstrual dysphoric disorder) (Acute) 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) Tobacco abuse (Acute) Chronic daily headache (Acute) Unresolved grief (Acute) Depression with anxiety (Acute) PTSD (post-traumatic stress disorder) (Acute) ADHD, hyperactive-impulsive type (Acute) Stress at home (Acute) At risk for domestic abuse (Acute) Unspecified contraceptive management (Acute) UTI (urinary tract infection) (Acute) Dental infection (Acute) Caries (Acute) Social History Smoking/Tobacco Use Status: Current every day Smoking risk assessment performed?: Yes Alcohol Intake: never Drug use: Never Substance use type: does not use Do you feel safe at home: Yes Do you feel safe in your relationship?: Yes Exam Narrative Exam Narrative: 1.Const: Well-nourished, Well-developed, appearing stated age 2.Eyes: PERRL, no conjunctival injection, and symmetrical lids. 3.ENT: Atraumatic external nose and ears. Moist MM. Neck: Symmetric, trachea midline, No thyromegaly. Notable dental caries throughout. The patient right lower jaw she demonstrates evidence of notable dental disease, and some swelling. No fluctuance. The area was explored with a 21-gauge needle, minimal purulence was removed. Dental block was performed as well demonstrated good pain control. No evidence of Ludewig's angina or airway compromise whatsoever. 4.CVS: +S1/S2, No murmurs or gallops. Peripheral pulses 2+ and equal in all extremities. Brisk capillary refill in all extremities. 5.RESP: Unlabored respiratory effort. Clear to auscultation bilaterally. No wheezes rales or rhonchi 6.GI: Soft, Nontender/Nondistended, No hepatosplenomegaly. No guarding or rebound. 7.MSK: Normocephalic/Atraumatic, Extremities w/o deformity or ttp No cyanosis or clubbing, Normal movement of all extremities 8.Skin: Warm, Dry. No rashes or lesions. 9.Neuro: biostatistics director II-XII grossly intact. Sensation grossly intact, no focal neurologic deficits. 10.Psych: (AAO) x3. Appropriate mood and affect Course Vital Signs Vital signs: Vital Signs Temperature 36.5 C 09/29/21 07:02 Pulse 104 H 09/29/21 07:02 Respiratory Rate 16 09/29/21 07:02 Blood Pressure 139/89 09/29/21 07:02 Pulse Oximetry 99 09/29/21 07:02 Temperature 36.5 C 09/29/21 07:02 Temperature Source Temporal Artery Scan 09/29/21 07:02 Pulse 104 H 09/29/21 07:02 Respiratory Rate 16 09/29/21 07:02 Respiratory Effort Non-Labored 09/29/21 07:06 Blood Pressure 139/89 09/29/21 07:02 Blood Pressure Position Sitting 09/29/21 07:02 Pulse Oximetry 99 09/29/21 07:02 Oxygen Delivery Method Room Air 09/29/21 07:02 Oxygen Flow Rate 0 09/29/21 07:02 Pain Level 7 09/29/21 07:06 Procedures Nerve Block Nerve Block 1: Time out performed: Yes Local Anesthetic: Bupivicaine 0.5% Amount of anesthesia used (mL): 5 Side: right Intraoral Nerve Block: inferior alveolar Procedure Successful: Yes Patient Tolerated Procedure: well and no complications Complications: none
[2021-09-29] MEDS: Penicillin V POTASSIUM 500 MG TAB, 4 TABS/BTL PO (07:13)
== END 2021-09-29 07:18 | disposition home or self-care (01) ==
PROVIDERS: Emergency Provider Student in an Organized Health Care Education/Training Program; PCP Nurse Practitioner Family
DX: K08.89 Other specified disorders of teeth and supporting structures (principal); K02.9 Dental caries, unspecified
CPT/HCPCS: 64400

== ENCOUNTER 2022-06-23 19:10 | Outpatient (REF) | payer MEDICAID, SELFPAY ==
[2022-06-23 20:07] LABS: FREE T4 0.99 ng/dL (0.76-1.46); TSH 2.65 uIU/mL (0.36-3.74)
== END 2022-06-23 19:11 | disposition home or self-care (01) ==
LOC: NCHCN 19:10
PROVIDERS: PCP Nurse Practitioner Family; Visit Provider Nurse Practitioner Family
DX: F41.8 Other specified anxiety disorders (principal); R53.83 Other fatigue; R94.6 Abnormal results of thyroid function studies; F90.1 Attention-deficit hyperactivity disorder, predominantly hyperactive type
CPT/HCPCS: 84439; 84443

== ENCOUNTER 2022-09-15 07:00 | Emergency (ER) | payer MEDICAID, SELFPAY ==
[2022-09-15 07:01] VITALS: BP 124/107; PULSE 94; RESP 16; TEMP 37.2; O2SAT 100
[2022-09-15] MEDS: Acetaminophen 325 MG TAB 650 MG PO (07:52)
[2022-09-15] MEDS: Penicillin V POTASSIUM 500 MG TAB PO (07:52)
--- NOTE | 2022-09-15 15:27 | NUR.NOTE ---
Nursing Note: Pt called with concerns that her antibiotics prescribed to her this morning are not working. I let her know that it takes time for the antibiotics to get in to her system and to start seeing results but if she is concerned she can come back in and be re-evaluated by another provider. She asked that one of the providers would prescribed her a different antibiotic and I let her know that she would have to come back in to be re-evaluated and they would decide if they wanted to give a different antibiotic or is she was on the appropriate one for her tooth infection. She decided to give it a little bit of time and if she is not improving, she will be back for evaluation.
--- NOTE | 2022-09-16 00:26 | ED.GENADUL_ITS ---
Discharge Plan Disposition Patient Disposition: Home Discharge Details Clinical Impression: Dental infection, Caries Primary Care Provider: Renetta Coronel ED Provider: Opal Leggett Home Meds and New Rx's Prescriptions: New penicillin V potassium 500 mg tablet 500 mg PO QID Qty: 40 0RF Continued fluoxetine 10 mg capsule 10 mg PO DAILY Patient Comments: Med dose changed to 40 mg. No longer using the 10 mg dosing 09/15/22 CT buprenorphine-naloxone [Suboxone] 8-2 mg film 12 mg PO DAILY loratadine [Claritin] 10 mg Tablet 10 mg PO PRN PRN fluoxetine [Prozac] 20 mg Capsule 40 mg PO DAILY AM levothyroxine 25 mcg tablet 25 mcg PO DAILY Patient Comments: TAKE 1 TABLET BY MOUTH EVERY MORNING ON AN EMPTY STOMACH Vyvanse 60 MG capsule 60 mg PO DAILY Discharge Instructions Instructions: Dental Caries (ED) Additional Instructions: Warm salt water rinses 6 times per day. Alternate ibuprofen 600 mg every 6 hours and Tylenol 650 mg every 6 hours as needed for pain. Take the penicillin as prescribed. Call your dentist now for a follow-up appointment this week. Return to ED for fever of 100.4 or above, marked swelling to your cheek, any other concerns. Discharge Data Discharge Date/Time-TO BE ENTERED AT DEPARTURE: 09/15/22 07:53 Medical Decision Making Patient was advised to alternate Tylenol 650 mg every 6 hours and ibuprofen 600 mg every 6 hours. She was given penicillin VK. She promises to call her dentist when she leaves the ED. She will return to the ED for redness or pronounced swelling to her left cheek area, fever of 100.4 or above, other concerns. HPI General Date/Time Provider Initiated Documentation: 09/15/22 07:41 . HPI Narrative: This 32-year-old female patient presents with a chief complaint of dental caries and dental pain that has been ongoing for months. Patient states caries on her lower left side have gotten worse over the last few days and she thinks she needs antibiotics. She does have a dentist and has not called this person for follow-up. She thinks that her left cheek may be vaguely swollen. There has be en no fever, trismus, or dysphagia. She has several teeth that are rotted to the gumline. She does have temperature sensitivity to the area. Related Data Home Medications Medication Instructions Recorded Confirmed lisdexamfetamine 60 mg capsule 60 mg PO DAILY 10/27/16 09/15/22 (Vyvanse) fluoxetine 20 mg capsule (Prozac) 40 mg PO DAILY AM 08/20/18 09/15/22 loratadine 10 mg tablet (Claritin) 10 mg PO PRN PRN 08/20/18 09/15/22 levothyroxine 25 mcg tablet 25 mcg PO DAILY 11/02/20 09/15/22 buprenorphine 8 mg-naloxone 2 mg 12 mg PO DAILY 11/20/20 09/15/22 sublingual film (Suboxone) fluoxetine 10 mg capsule 10 mg PO DAILY 11/20/20 09/29/21 penicillin V potassium 500 mg 500 mg PO QID #40 tabs 09/15/22 tablet Previous Rx's Medication Instructions Recorded penicillin V potassium 500 mg 500 mg PO QID #40 tabs 09/15/22 tablet Allergies Allergy/AdvReac Type Severity Reaction Status Date / Time No Known Allergies Allergy Unverified 09/15/22 07:06 General Stated Complaint: DentalOral MARCY: 4 Review of Systems Constitutional Constitutional: Denies fever(s) ENT Ears, Nose, Mouth, and Throat: Denies bleeding gums, Reports dental pain and Denies dysphagia Gastrointestinal Gastrointestinal: Denies dysphagia Integumentary/Breasts Skin/Breast: Reports other (No facial erythema) PFSH All Active Problems Contraception management (Acute) PMDD (premenstrual dysphoric disorder) (Acute) 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) Tobacco abuse (Acute) Chronic daily headache (Acute) Unresolved grief (Acute) Depression with anxiety (Acute) PTSD (post-traumatic stress disorder) (Acute) ADHD, hyperactive-impulsive type (Acute) Stress at home (Acute) At risk for domestic abuse (Acute) Unspecified contraceptive management (Acute) UTI (urinary tract infection) (Acute) Dental infection (Acute) Caries (Acute) Social History Smoking/Tobacco Use Status: Current every day Tobacco Type: cigarettes Smoking risk assessment performed?: Yes Alcohol Intake: never Drug use: Never Substance use type: does not use Do you feel safe at home: Yes Do you feel safe in your relationship?: Yes Exam Const General: healthy appearing, comfortable, well developed and well groomed Orientation: alert, awake and oriented x3 HENMT Head: normocephalic and atraumatic Face and sinus: other (vague left sided cheek edema) Mouth: oropharynx normal Teeth and gingiva: caries (Extensive to gum, molars left lower), normal gingiva, poor dentition (As noted) and other (No fluctuance left buccal mucosa) Throat: posterior oropharynx normal, uvula midline and uvula not displaced Eyes Conjunctivae: conjunctivae normal Neck Neck: full ROM and no lymphadenopathy noted Resp Effort & Inspection: normal respiratory effort Skin General skin exam: other ( PWD) Extrem General: normal to inspection and full ROM Course Vital Signs Vital signs: Vital Signs Temperature 37.2 C 09/15/22 07:01 Pulse 94 H 09/15/22 07:01 Respiratory Rate 16 09/15/22 07:01 Blood Pressure 124/107 H 09/15/22 07:01 Pulse Oximetry 100 09/15/22 07:01 Temperature 37.2 C 09/15/22 07:01 Temperature Source Temporal Artery Scan 09/15/22 07:01 Pulse 94 H 09/15/22 07:01 Respiratory Rate 16 09/15/22 07:01 Respiratory Effort Normal 09/15/22 07:04 Blood Pressure 124/107 H 09/15/22 07:01 Blood Pressure Position Sitting 09/15/22 07:01 Pulse Oximetry 100 09/15/22 07:01 Oxygen Delivery Method Room Air 09/15/22 07:01 Oxygen Flow Rate 0 09/15/22 07:01 Pain Level 5 09/15/22 07:04
== END 2022-09-15 07:53 | disposition home or self-care (01) ==
LOC: ER 07:54
PROVIDERS: Emergency Provider Emergency Medicine; PCP Nurse Practitioner Family
DX: R68.84 Jaw pain (principal)
CPT/HCPCS: 99283; 99284

== ENCOUNTER 2022-11-30 14:12 | Outpatient (REF) | payer MEDICAID, SELFPAY ==
[2022-12-02 18:07] LABS: 2-OH-Ethyl-Flurazepam Negative ng/mL (Cutoff: 10); 7-NH-Clonazepam Negative ng/mL (Cutoff: 10); 7-NH-Flunitrazepam Negative ng/mL (Cutoff: 10); Alpha OH-Alprazolam Negative ng/mL (Cutoff: 10); Alpha-OH Midazolam Negative ng/mL (Cutoff: 10); Alpha-OH-Triazolam Negative ng/mL (Cutoff: 10); Alprazolam Negative ng/mL (Cutoff: 10); Benzodiazepines Interpretation Negative.; Chlordiazepoxide Negative ng/mL (Cutoff: 10); Clobazam Negative ng/mL (Cutoff: 10); Clonazepam Negative ng/mL (Cutoff: 10); Diazepam Negative ng/mL (Cutoff: 10); Flurazepam Negative ng/mL (Cutoff: 10); Lorazepam Negative ng/mL (Cutoff: 10); Midazolam Negative ng/mL (Cutoff: 10); N-Desmethylclobazam Negative ng/mL (Cutoff: 10); Prazepam Negative ng/mL (Cutoff: 10); Temazepam Negative ng/mL (Cutoff: 10); Triazolam Negative ng/mL (Cutoff: 10); Zolpidem Carboxylic acid Negative ng/mL (Cutoff: 10)
[2022-12-03 13:18] LABS: Amphetamine 3866 ng/mL (Cutoff: 25); Amphetamines Interpretation Positive.; MDA (Ecstasy Metabolite) Negative ng/mL (Cutoff: 25); MDMA (Ecstasy) Negative ng/mL (Cutoff: 25); Methamphetamine Negative ng/mL (Cutoff: 25); Phentermine Negative ng/mL (Cutoff: 25); Pseudoephedrine/Ephedrine Negative ng/mL (Cutoff: 25)
== END 2022-11-30 14:13 | disposition home or self-care (01) ==
LOC: NCHCN 14:12
PROVIDERS: PCP Nurse Practitioner Family; Visit Provider Nurse Practitioner Family
DX: R06.2 Wheezing (principal); F90.1 Attention-deficit hyperactivity disorder, predominantly hyperactive type; F41.8 Other specified anxiety disorders
CPT/HCPCS: 80324; 80346

== ENCOUNTER 2023-01-16 10:51 | Emergency (ER) | payer MEDICAID, SELFPAY ==
[2023-01-16 11:05] VITALS: BP 121/76; PULSE 92; RESP 18; TEMP 37.6; O2SAT 100
--- NOTE | 2023-01-16 11:15 | DI.RAD_ITS ---
Exam(s) XR KNEE RT 3V AP,LAT,CLEM EXAM: XR KNEE RT 3V AP,LAT,CLEM CLINICAL HISTORY: knee pain, knee locked. TECHNIQUE: 2D digital imaging was performed. Three views. COMPARISON: No exams were available for comparison FINDINGS: Positioning limited due to patient condition. The knee is held in flexion on both the AP and lateral views. BONES: No acute fracture is present. No bony destructive lesion is seen. JOINTS: The knee is normally aligned. No joint effusion is seen. SOFT TISSUE: Normal. IMPRESSION: Limited exam. No acute abnormality. DATA REPOSITORY: RADIATION DOSE DELIVERED:
--- NOTE | 2023-01-16 11:28 | ED.GENADUL_ITS ---
Discharge Plan Disposition Patient Disposition: Home Condition: Improving Discharge Details Chief Complaint: Orthopedic Clinical Impression: Acute knee pain Primary Care Provider: Renetta Coronel ED Provider: Colin Latham Home Meds and New Rx's Prescriptions: No Action vitamin B complex Tablet 1 tab PO DAILY magnesium oxide 400 mg magnesium capsule 400 mg PO DAILY omeprazole 20 mg capsule,delayed release(DR/EC) 20 mg PO DAILY cholecalciferol (vitamin D3) 25 mcg (1,000 unit) capsule 25 mcg PO DAILY albuterol sulfate [Ventolin HFA] 90 mcg/actuation HFA aerosol inhaler 2 puff inhalation Q6H PRN indomethacin 25 mg capsule 25 mg PO TID Rx Instructions: administer with food or milk levothyroxine 25 mcg tablet 50 mcg PO DAILY Patient Comments: TAKE 1 TABLET BY MOUTH EVERY MORNING ON AN EMPTY STOMACH prochlorperazine maleate 5 mg tablet See Rx Instructions PO TID PRN (Reason: headache and/or nausea) Qty: 30 3RF Rx Instructions: 5-10 mg orally three times a day PRN; buprenorphine-naloxone [Suboxone] 8-2 mg film 12 mg PO DAILY fluoxetine [Prozac] 20 mg Capsule 40 mg PO DAILY AM lisdexamfetamine [Vyvanse] 60 MG capsule 60 mg PO DAILY Discharge Instructions Instructions: Knee Pain (ED) Medical Decision Making 32-year-old female presents with atraumatic right knee discomfort, patient feels as if her knee is locked in flexion, prior incident when she was younger, no trauma, afebrile nontoxic, no external signs of trauma, no joint laxity no effusion, warm well-perfused extremity neurovascular exam intact, other joints of limb intact with full range of motion, consider meniscal injury versus muscle spasm low suspicion for fracture dislocation low suspicion for infection. Screening x-ray analgesia anti-inflammatory 13: 10 patient initially refusing anti-inflammatories, does not want IM medication. Have switch Toradol to p.o. We will also add cyclobenzaprine. X- ray unremarkable however patient is still unable to extend knee due to extreme pain over anterior aspect of knee. Have added CT knee. No induration no erythema no warmth afebrile otherwise nontoxic. 15: 25 patient able to extend knee to 90 degrees now after anti-inflammatory. CT negative for dislocation or fracture, evidence of inflammation around cruciate ligament. Patient be given orthopedic referral and crutches. Instructions for anti-inflammatory ice elevation rest given for home HPI General Date/Time Provider Initiated Documentation: 01/16/23 11:21 . HPI Narrative: 32-year-old female presents with right knee locked, denies known injury however this is happened to her in the past. Cannot fully extend her leg due to pain. Related Data Home Medications Medication Instructions Recorded Confirmed lisdexamfetamine 60 mg capsule 60 mg PO DAILY 10/27/16 01/16/23 (Vyvanse) fluoxetine 20 mg capsule (Prozac) 40 mg PO DAILY AM 08/20/18 01/16/23 buprenorphine 8 mg-naloxone 2 mg 12 mg PO DAILY 11/20/20 01/16/23 sublingual film (Suboxone) albuterol sulfate 90 mcg/actuation 2 puff inhalation Q6H PRN 12/08/22 01/16/23 aerosol inhaler (Ventolin HFA) cholecalciferol (vitamin D3) 25 25 mcg PO DAILY 12/08/22 01/16/23 mcg (1,000 unit) capsule indomethacin 25 mg capsule 25 mg PO TID 12/08/22 01/16/23 levothyroxine 25 mcg tablet 50 mcg PO DAILY 12/08/22 01/16/23 magnesium oxide 400 mg PO DAILY 12/08/22 01/16/23 omeprazole 20 mg capsule,delayed 20 mg PO DAILY 12/08/22 01/16/23 release prochlorperazine maleate 5 mg See Rx Instructions PO TID PRN 12/08/22 01/16/23 tablet headache and/or nausea #30 tabs vitamin B complex 1 tab PO DAILY 12/08/22 01/16/23 Previous Rx's Medication Instructions Recorded prochlorperazine maleate 5 mg See Rx Instructions PO TID PRN 12/08/22 tablet headache and/or nausea #30 tabs Allergies Allergy/AdvReac Type Severity Reaction Status Date / Time No Known Allergies Allergy Unverified 12/08/22 12:39 General Stated Complaint: Orthopedic MARCY: 4 Review of Systems Narrative: Review of Systems Constitutional: negative Eyes: negative ENT: negative Cardiovascular: negative Respiratory: negative Gastrointestinal: negative : negative Musculoskeletal: Knee pain Skin: negative Neurologic: negative Psych: negative PFSH All Active Problems (Updated 01/16/23 @ 15:29 by Colin Latham MD) Acute knee pain (Acute) Migraine headache without aura (Acute) Migraine headache with aura (Acute) Contraception management (Acute) PMDD (premenstrual dysphoric disorder) (Acute) 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) Tobacco abuse (Acute) Chronic daily headache (Acute) Unresolved grief (Acute) Depression with anxiety (Acute) PTSD (post-traumatic stress disorder) (Acute) ADHD, hyperactive-impulsive type (Acute) Stress at home (Acute) At risk for domestic abuse (Acute) Unspecified contraceptive management (Acute) Caries (Acute) Dental infection (Acute) UTI (urinary tract infection) (Acute) Medical History Acute joint pain ADHD Anal high risk HPV DNA test positive Edema Elevated TSH Fatigue Headache Seasonal allergies Shoulder pain, bilateral Wheezing Social History Smoking/Tobacco Use Status: Current every day Tobacco Type: cigarettes Smoking risk assessment performed?: Yes Alcohol Intake: never Drug use: Never Substance use type: does not use Do you feel safe at home: Yes Do you feel safe in your relationship?: Yes Exam Narrative Exam Narrative: Extremity: Knee held in flexion, due to pain patient will not allow active or passive extension at knee, no hip discomfort no ankle discomfort, normal- appearing skin, warm well perfused, soft compartments, DP pulse intact, sensation in extremity intact, no appreciable effusion or laxity to knee Course Vital Signs Vital signs: Vital Signs Temperature 37.6 C H 01/16/23 11:05 Pulse 92 H 01/16/23 11:05 Respiratory Rate 18 01/16/23 11:05 Blood Pressure 121/76 01/16/23 11:05 Pulse Oximetry 100 01/16/23 11:05 Temperature 37.6 C H 01/16/23 11:05 Temperature Source Skin 01/16/23 11:05 Pulse 92 H 01/16/23 11:05 Respiratory Rate 18 01/16/23 11:05 Blood Pressure 121/76 01/16/23 11:05 Blood Pressure Position Sitting 01/16/23 11:05 Pulse Oximetry 100 01/16/23 11:05 Oxygen Delivery Method Room Air 01/16/23 11:05 Oxygen Flow Rate 0 01/16/23 11:05 Pain Level 2 01/16/23 11:05 Comment pain increases with movement 01/16/23 11:05
--- NOTE | 2023-01-16 12:36 | DI.VRAD_ITS ---
PROCEDURE INFORMATION: Exam: XR Right Knee Exam date and time: 01/16/2023 12:19 PM Age: 32 years old Clinical indication: Pain; Knee; Right; Patient HX: Hyper extended. . ; Additional info: Patient undable to straighten leg. Best images possible due to flexion of knee TECHNIQUE: Imaging protocol: Radiologic exam of the right knee. Views: 3 views. COMPARISON: No relevant prior studies available. FINDINGS: Bones/joints: Limited positioning especially on the AP view. Grossly, no displaced fracture nor dislocation seen. Soft tissues: No metallic foreign body seen. IMPRESSION: Limited study. Grossly, no displaced fracture seen, as visualized. Consider follow-up when possible. Dictated and Authenticated by: Ashish Zhou MD. Ordering:CHRISTELLE Shaw MD
--- NOTE | 2023-01-16 13:00 | DI.CT_ITS ---
Exam(s) CT LOWER EXTREMITY RT WO EXAM: CT LOWER EXTREMITY RT WO CLINICAL HISTORY: unable to straighten knee, atraumatic pain. TECHNIQUE: Imaging Protocol: Axial computed tomography images with coronal and sagittal reformatted images were created and reviewed. CONTRAST MATERIAL: Noncontrast COMPARISON: CR,XR XR KNEE RT 3V AP,LAT,CLEM from 01/16/2023 FINDINGS: Bones: There is no evidence of fracture or dislocation. No cellulitic or osteomyelitic changes are identified. No lytic or sclerotic lesions are identified. Joints: No joint effusion or hemarthrosis. There is no significant joint space narrowing. No signif icant periarticular spurring. Soft Tissues: Normal. IMPRESSION: No acute abnormality of the knee. RADIATION DOSE DELIVERED: Total DLP DATA REPOSITORY: All CT scans at this facility are submitted to the National Radiology Data Registry (NRDR) Dose Index Registry (DIR) with the [employer] ([employer]). RADIATION OPTIMIZATION: All CT scans at this facility use at least one of these dose optimization te chniques: automated exposure control; mA and/or kV adjustment per patient size (includes targeted exa ms where dose is matched to clinical indication); or iterative reconstruction.
[2023-01-16] MEDS: Cyclobenzaprine 10 MG TAB PO (13:20)
[2023-01-16] MEDS: Ketorolac 10 MG TAB PO (13:20)
[2023-01-16 13:57] VITALS: BP 126/81; PULSE 76; TEMP 37.1; O2SAT 100
--- NOTE | 2023-01-16 15:13 | DI.VRAD_ITS ---
PROCEDURE INFORMATION: Exam: CT Right Lower Extremity Without Contrast, Knee Exam date and time: 01/16/2023 2:51 PM Age: 32 years old Clinical indication: Other: Unable to straighten knee, atraumatic pain TECHNIQUE: Imaging protocol: CT of the right lower extremity without contrast was performed. Exam focused on the knee. COMPARISON: CR XR KNEE RT 3V AP,LAT,CLEM 01/16/2023 12:19 PM FINDINGS: Bones/joints: There is no evidence of acute fracture in any of the visualized osseous structures.. Inflammatory changes around the cruciate ligaments posteriorly. Recommend MRI for further evaluation. There is no evidence of malalignment or dislocation of any visualized joint. Soft tissues: Normal. IMPRESSION: 1. There is no evidence of acute fracture in any of the visualized osseous structures.. 2. Inflammatory changes around the cruciate ligaments posteriorly. Recommend MRI for further evaluation. 3. There is no evidence of malalignment or dislocation of any visualized joint. Dictated and Authenticated by: Nic Moody MD. Ordering:CHRISTELLE Shaw MD
--- NOTE | 2023-01-16 15:26 | NUR.NOTE ---
Nursing Note:ortho referral
--- NOTE | 2023-01-18 08:14 | NUR.NOTE ---
Accessed Pt chart to obtain information to complete [facility] document
== END 2023-01-16 15:37 | disposition home or self-care (01) ==
PROVIDERS: Emergency Provider Emergency Medicine; PCP Nurse Practitioner Family
DX: M25.561 Pain in right knee (principal); F17.210 Nicotine dependence, cigarettes, uncomplicated
CPT/HCPCS: 73562; 81025; 99284; 73700; 99283

== ENCOUNTER 2023-06-14 17:17 | Outpatient (REF) | payer MEDICAID, SELFPAY ==
[2023-06-14 20:08] LABS: FREE T4 0.83 ng/dL (0.76-1.46); TSH 3.04 uIU/Ml (0.36-3.74)
== END 2023-06-14 17:18 | disposition home or self-care (01) ==
LOC: NCHCN 17:17
PROVIDERS: PCP Nurse Practitioner Family; Visit Provider Nurse Practitioner Family
DX: E03.9 Hypothyroidism, unspecified (principal)
CPT/HCPCS: 84439; 84443

== ENCOUNTER 2023-11-12 16:51 | Outpatient (REF) | payer MEDICAID, SELFPAY ==
--- OUTSIDE RECORDS SUMMARY | 2023-11-12 16:53 | XMS_ITS | Continuity of Care Document ---
Author Organization [facility] Address [address] [place] [address] Care Team Providers Care Organ Tuner Electronic Name Role Phone Nidia Lan Primary Care Physician Encounter [facility] Date(s): 03/02/22 - 03/02/22 [facility] [address] [place] [address] Discharge Disposition: Home or Self Care Attending Physician: Nidia Lan Admitting Physician: Nidia Lan Referring Physician: Nidia Lan Assessment and Plan Diagnostic Tests Pending * Vitamin D, 25-OH Total [facility] 03/02/22 Results Laboratory List Name Date Cortisol [facility] 03/02/22 Cortisol [facility] 03/02/22 CBC w/ Diff 03/02/22 Comprehensive Metabolic Panel (CMP) 02/04 11/24 Cortisol [facility] 03/02/22 Ferritin 03/02/22 Hemoglobin A1c 03/02/22 Iron Level and TIBC 03/02/22 Sedimentation Rate (ESR) 03/02/22 TSH w/ Rflx to Free T4 03/02/22 Free T4 03/02/22 Automated Diff 03/02/22 Most recent to oldest [Reference Range]: 1 2 3 WBC [5.0-10.0 x10^3/mcL] 7.2 x10^3/mcL (03/02/22 8:33 AM) RBC [4.1-5.3 x10^6/mcL] 4.6 x10^6/mcL (03/02/22 8:33 AM) Neutro Auto [40.0-75.0 %] 43.7 % (03/02/22 8:33 AM) Lymph Auto [20.0-50.0 %] 43.6 % (03/02/22 8:33 AM) [place] Auto [2.0-15.0 %] 8.0 % (03/02/22 8:33 AM) Basophil Auto [0.0-1.0 %] 0.4 % (03/02/22: AM) BUN [7-18 mg/dL] 11 mg/dL (03/02/22 8 AM) Glucose Level [74-106 mg/dL] 86 mg/dL (03/02/22 AM) Potassium Level [3.5-5.1 mmol/L] 3.6 mmol/L (03/02/22: AM) MCV [80.0-96.0] 91.3 (03/02/22 AM) T4 Free [0.76-1.46 ng/dL] 0.99 ng/dL (03/02/22 AM) AST [15-37 unit/L] 29 unit/L (03/02/22 AM) ALT [14-59 unit/L] 25 unit/L (03/02/22 AM) MCHC [31.0-35.0 g/dL] 35.5 g/dL *HI* (03/02/22: AM) Sodium Level [136-145 mmol/L] 138 mmol/L (03/02/22 8: AM) Hct [37.0-47.0 %] 42.0 % (03/02/22 AM) Calcium Level [8.5-10.1 mg/dL] 10.2 mg/dL *HI* (03/02/22 AM) Albumin Level [3.4-5.0 g/dL] 4.7 g/dL (03/02/22 8 AM) Protein Total [6.4-8.2 g/dL] 8.5 g/dL *HI* (03/02/22 8 AM) Iron Sat [20-55 %] 45 % (03/02/22 AM) MCH [26.0-32.0 pg] 32.4 pg *HI* (03/02/22 8: AM) Neutro Absolute 3.2 x10^3/mcL *NA* (03/02/22 8 AM) Bilirubin Total [0.2-1.0 mg/dL] 0.6 mg/dL (03/02/22 8:33 AM) Hgb [12.0-16.0 g/dL] 14.9 g/dL (03/02/22 AM) Alk Phos [46-146 unit/L] 75 unit/L (03/02/22 AM) Ferritin Level [8-252 ng/mL] 57 ng/mL (03/02/22 AM) Platelets [130-450 x10^3/mcL] 296 x10^3/mcL (03/02/22 AM) CO2 [21-32 mmol/L] 28 mmol/L (03/02/22 8 AM) TIBC [250-450 mcg/dL] 350 mcg/dL (03/02/22 AM) TSH [0.358-3.740 mcIntlUnit/mL] 7.148 mcIntlUnit/mL *HI* (03/02/22 AM) Iron [50-170 mcg/dL] 158 mcg/dL (03/02/22: AM) eGFR Non-AA [>=60] 81 (03/02/22 8:33 AM) eGFR AA [>=60] 81 (03/02/22: AM) Hemoglobin A1c [4.0-6.0 %] 5.2 % (03/02/22 AM) Chloride Level [98-107 mmol/L] 100 mmol/L (03/02/22 8: AM) RDW-CV [11.7-17.0 %] 12.2 % (03/02/22 8: AM) Imm Gran Auto [0.0-0.9 %] 0.1 % (03/02/22 8: AM) Creatinine Level [0.55-1.02 mg/dL] 0.96 mg/dL (03/02/22 8: AM) Cortisol [facility] [See Note mcg/dL] 13 mcg/dL 1 *NA* (03/02/22 9:30 AM) 18 mcg/dL 2 *NA* (03/02/22 9:00 AM) 13 mcg/dL 3 *NA* (03/02/22 8:33 AM) Eos, Auto [1.0-6.0 %] 4.2 % (03/02/22 8:33 AM) ESR, Westergren [0-30 mm/hr] 29 mm/hr (03/02/22 8:33 AM) 1Result Comment: NOTE: Reference Ranges (from [facility]): Collected Before 10:00 AM: 4 - 23 ug/dL Collected After 5:00 PM: 2 - 14 ug/dL The results of this assay can be falsely elevated due to the consumption of Biotin. Test [place] [address] 2Result Comment: NOTE: Reference Ranges (from [facility]): Collected Before 10:00 AM: 4 - 23 ug/dL Collected After 5:00 PM: 2 - 14 ug/dL The results of this assay can be falsely elevated due to the consumption of Biotin. Test [place] [address] 3Result Comment: NOTE: Reference Ranges (from [facility]): Collected Before 10:00 AM: 4 - 23 ug/dL Collected After 5:00 PM: 2 - 14 ug/dL The results of this assay can be falsely elevated due to the consumption of Biotin. Test performed [place] [address] Vital Signs Most recent to oldest [Reference Range]: 1 Temperature Temporal Artery [36-38 Deg C ] 36.7 Deg C (03/02/22 8:04 AM) Peripheral Pulse Rate [60-100 bpm] 101 b pm *HI* (03/02/22 8:04 AM) Respiratory Rate [12-24 br/min] 18 br/mi n (03/02/22 8:04 AM) Blood Pressure [90-140/60-90 mmHg] 136/8 4mmHg (03/02/22 8:04 AM) Mean Arterial Pressure Cuff 95 mmHg (03/02/22 8:04 AM) Blood Pressure Location Left arm (03/02/22 8:04 AM) Blood Pressure Method Automatic (03/02/22 8:04 AM) Social History Social History Type Response Sex Female Patient Care team information Personnel Name: Nidia Lan Address: Address: [address] [place], [place] [address]
--- OUTSIDE RECORDS SUMMARY | 2023-11-12 16:53 | XMS_ITS | Referral Summary ---
Author Organization [facility] Address [address] [place] [address] Care Team Providers Care Bow Maker Machine Tender Name Role Phone Unknown, Provider Primary Care Provider [phone] Social History Tobacco Use Types Packs/Day Years Used Date Smoking Tobacco: Never Assessed Sex and Gender Information Value Date Recorded Sex Assigned at Not on file Gender Identity Not on file Sexual Orientation Not on file Plan of Treatment Not on file Care Teams Bow Maker Machine Tender Relationship Specialty Start Date End Date Unknown, Provider, PCP - General 09/23/17
--- OUTSIDE RECORDS SUMMARY | 2023-11-12 16:53 | XMS_ITS | Encounter Summary ---
Author Organization [facility] Address [address] [place] [address] Care Team Providers Care Butadiene Converter Utility Operator Name Role Phone Unknown, Provider Primary Care Provider Encounter Details Date Type Department Care Team (Late st Contact Info) Description 08/28/[address] [facility] Pathology & Laboratory Medicine - [facility] [address] [place] [address] Outr Resulting Lab, Provider Social History Tobacco Use Types Packs/Day Years Used Date Smoking Tobacco: Never Assessed Sex and Gender Information Value Date Recorded Sex Assigned at Not on file Gender Identity Not on file Sexual Orientation Not on file documented as of this encounter Plan of Treatment Not on file documented as of this encounter Procedures Procedure Name Priority Date/Time Associated Diagnosis Comments LYME AB Routine 08/27/2020 13:30 EDT ANTI NUCLEAR AB (ARUN), IFA Routine 08/27/2020 13:30 EDT documented in this encounter Results * LYME AB (08/27/2020 13:30 EDT) Lyme Ab Negative Negative 08/29/2020 9:38 EDT [facility] Comment:New 3rd generation a ssay in use 09/13/2019 Blood VENOUS BLOOD / Unknown 08/27/2020 13:30 EDT 08/28/2020 16:02 EDT Provider Outr Resulting Lab IMMUNOLOGY A ND SEROLOGY ORDERABLES [facility] [address] [place] [address] * (ABNORMAL) ANTI NUCLEAR AB (ARUN), IFA (08/27/2020 13:30 EDT) ARUN Interpretation Positive(A) Negative 08/29/2020 14:35 EDT [facility] Comment: For titers greater than or equal to 1:160 (except the centromere and nucleolar patterns) it is recommended that specific follow-up autoantibody testing ??(such as for dsDNA and Extractable Nuclear Antigens) be performed on all diffuse and/or speckled patterns NOTE: For add-on testing dsDNA is stable for 7 days refrigerated while Extractable Nuclear Antigens are only stable for 48 hours refrigerated. ARUN Titer and Pattern 1 1:160 Homogeneous 08/29/2020 14:35 EDT [facility] Blood VENOUS BLOOD / Unknown 08/27/2020 13:30 EDT 08/28/2020 16:02 EDT Narrative [facility] - 08/29/2020 14:35 EDT Results were obtained with the INOVA NOVA Lite HEp-2 ARUN Kit by indirect immunofluorescence. Provider Outr Resulting Lab IMMUNOLOGY A ND SEROLOGY ORDERABLES [facility] [address] [place] [address] documented in this encounter Visit Diagnoses Not on filedocumented in this encounter Care Teams Butadiene Converter Utility Operator Relationship Specialty Start Date End Date Unknown, Provider, PCP - General 09/23/17 documented as of this encounter
--- OUTSIDE RECORDS SUMMARY | 2023-11-12 16:53 | XMS_ITS | Continuity of Care Document ---
Author Organization [facility] Address [address] [place] [address] Care Team Providers Care Weigh Boss Name Role Phone ZuhairRenetta spear Primary Care Physician [phone] Encounter [facility] Date(s): 07/25/22 - 07/26/22 [facility] [address] [place] [address] Encounter Diagnosis Corneal abrasion, left(Discharge Diagnosis) - 07/25/22 Discharge Disposition: Home or Self Care Attending Physician: Saundra Walker MD Admitting Physician: Saundra Walker MD Allergies, Adverse Reactions, Alerts No Known Allergies Functional Status 07/25/22 Family Member Travel History No recent t ravel Recent Travel History No recent travel Other exposure to Infectious Disease Non e Medications FLUoxetine 0 Refill(s) Start Date: 07/25/22 Status: Ordered levothyroxine 0 Refill(s) Start Date: 07/25/22 Status: Ordered Suboxone 12 mg-3 mg sublingual film 0 Refill(s) Start Date: 07/25/22 Status: Ordered Vyvanse 70 mg =, 0 Refill(s) Start Date: 07/25/22 Status: Ordered Vital Signs Most recent to oldest [Reference Range]: 1 2 Temperature Temporal Artery [36-38 Deg C ] 36.6 Deg C (07/25/22 11:22 PM) Peripheral Pulse Rate [60-100 bpm] 93 bp m (07/25/22 11:22 PM) Respiratory Rate [12-24 br/min] 16 br/mi n (07/26/22 12:55 AM) 20 br/min (07/25/22 11:22 PM) Blood Pressure [90-140/60-90 mmHg] 144/1 02mmHg *HI* (4/22/23 11:22 PM) Weight Dosing 73.00 kg (07/25/22 11:31 PM) Weight Estimated 73.00 kg (07/25/22 11:22 PM) Height/Length Dosing 170.000 cm (07/25/22 11:31 PM) Height/Length Estimated 170.000 cm (07/25/22 11:22 PM) Social History Social History Type Response Tobacco Current everyday tob acco user Tobacco Use:. Sex Female Hospital Discharge Instructions Patient Education 07/25/2022 23:43:52 Corneal Abrasion Corneal Abrasion A corneal abrasion is a scratch or injury to the clear covering over the front of the eye (cornea).Your cornea forms a clear dome that protects your eye and helps to focus your vision. Your cornea is made up of many layers, but the surface layer is one of the most sensitive tissues in your body. Acorneal abrasion can be very painful. If a corneal abrasion is not treated, it can become infected and cause an ulcer. This can lead to scarring. A scarred cornea can affect your vision. Sometimes abrasions come back in the same area, even after the original injury has healed. What are the causes? This condition may be caused by: ??? A placement interviewer the eye. ??? A gritty or irritating substance (foreign body) in the eye. ??? Excessive eye rubbing. ??? Very dry eyes. ??? Certain eye infections. ??? Contact lenses that fit poorly or are worn for a long period of time. You can also injure your cornea when putting contact lenses in your eye or taking them out. ??? Eye surgery. ??? Certain cornea problems may increase the chance of a corneal abrasion. Sometimes, the cause is not known. What are the signs or symptoms? Symptoms of this condition include: ??? Eye pain. The pain may get worse when you open and close your eye or when you move your eye. ??? A feeling of something stuck in your eye. ??? Tearing, redness, and sensitivity to light. ??? Having trouble keeping your eye open, or not being able to keep it open. ??? Blurred vision. ??? Headache. How is this diagnosed? You may work with a health care provider who specializes in diseases and conditions of the eye (human factors scientist). This condition may be diagnosed based on your medical history, symptoms, and an eye exam. Before the eye exam, numbing drops may be put into your eye. You may also have dye put in your eye with a dropper or a small paper strip. The dye makes the abrasion easy to see when your human factors scientist examines your eye with a light. Your human factors scientist may look at your eye through an eye scope (slit lamp). How is this treated? Treatment may vary depending on the cause of your condition, and it may include: ??? Washing out your eye. ??? Removing any foreign bodies that are in your eye. ??? Using antibiotic drops or ointment to treat or prevent an infection. ??? Using a dilating drop to decrease inflammation and pain. ??? Using steroid drops or ointment to treat redness, irritation, or inflammation. ??? Applying a cold, wet cloth (cold compress) or ice pack to ease the pain. ??? Taking pain medicine by mouth (orally). In some cases, an eye patch or bandage soft contact lens might also be used. An eye patch should not be used if the corneal abrasion was related to contact lens wear as it can increase the chance of infection in these eyes. Follow these instructions at home: Medicines ??? Use eye drops or ointments as told by your health care provider. ??? If you were prescribed antibiotic drops or ointment, use them as told by your health care provider. Do not stop using the antibiotic even if you start to feel better. ??? Take ueid-njh-qvhpyde and prescription medicines only as told by your health care provider. ??? Ask your health care provider if the medicine prescribed to you: ??? Requires you to avoid driving or using heavy machinery. ??? Can cause constipation. You may need to take these actions to prevent or treat constipation: ??? Drink enough fluid to keep your urine pale yellow. ??? Take kaoe-vfc-ubjrqmu or prescription medicines. ??? Eat foods that are high in fiber, such as beans, whole grains, and fresh fruits and vegetables. ??? Limit foods that are high in fat and processed sugars, such as fried or sweet foods. Eye patch use ??? If you have an eye patch, wear it as told by your health care provider. ??? Do not drive or use machinery while wearing an eye patch. Your ability to rn otolaryngology distances will be impaired. ??? Follow instructions from your health care provider about when to remove the patch. General instructions ??? Ask your health care provider whether you can use a cold compress on your eye to relieve pain. ??? Do not rub or touch your eye. Do not wash out your eye. ??? Do not wear contact lenses until your health care provider says that this is okay. ??? Avoid bright light and eye strain. ??? Keep all follow-up visits as told by your health care provider. This is important for preventing infection and vision loss. Contact a health care provider if: ??? You continue to have eye pain and other symptoms for more than 2 days. ??? You have new symptoms, such as worse redness, tearing, or discharge. ??? You have discharge that makes your eyelids stick together in the morning. ??? Your eye patch becomes so loose that you can blink your eye. ??? Symptoms return after the original abrasion has healed. Get help right away if: ??? You have severe eye pain that does not get better with medicine. ??? You have vision loss. Summary ??? A corneal abrasion is a scratch or injury to the clear covering over the front of the eye (cornea). ??? It is important to get treatment for a corneal abrasion. If this problem is not treated, it canaffect your vision. ??? Use eye drops or ointments as told by your health care provider. ??? If you have an eye patch, do not drive or use machinery while wearing it. Your ability to judgedistances will be impaired. ??? Let your health care provider know if your symptoms continue for more than 2 days. This information is not intended to replace advice given to you by your health care provider. Make sure you discuss any questions you have with your health care provider. Document Revised: 07/28/2019 Document Reviewed: 07/28/2019 [employer] Patient Education ?? 2021 [employer] Follow Up Care 07/25/2022 23:22:18 With:Follow up with primary care provider Address: When:1 to 2 weeks Physician Emergency department Note * Saundra Walker MD: PERFORM Event Display: ED Note Physician Authored Date: [id number] TERRIE SAMPSON :1990 Age:32 years Sex:Female Visit Date:07/25/2022 Primary Care Physician: Renetta Coronel NP Basic Information Time Seen: Saundra Walker MD / 07/26/2022 00:29 Chief Complaint Patient states her left eye is blurry and painful for the last hour. ??? trauma. ??Took Motrin 800 and 3 Tylenol. History Of Present Illness: Patient ordered some contacts on the Internet to change her??eye color??she thinks it may have sakshi mistake because she now has left eye blurry vision and??hurts.?? Patient took out the contact is wearing her glasses she took ibuprofen and Tylenol prior to arrival.?? Patient also thinks perhaps??where she has pets could have a??dog hair??in her eye. Review of Systems: see hpi for ros Physical Exam Vitals & Measurements T:??36.6?C ??(Temporal Artery)?? HR:??93??(Peripheral)?? RR:??16?? BP:??144/102?? SpO2:??100%?? HT:??170.000??cm?? WT:??73.00??kg??(Estimated)?? Pain Score:??5?? O2 Therapy:??Room air?? General: Alert and oriented, well nourished,?No??acute distress Eye: PER,?Normal??conjunctiva??for injected left??conjunctiva, No scleral icterus, positive slight swelling??left upper eyelid??slight injection of inner eyelids no foreign body seen??fluorescein??without uptake seen on??ophthalmoscope look??fluorescein was scattered??throughout cornea??on slit l amp exam HENT: Normocephalic?Normal?? hearing?? Respiratory:??Respiration??no distress??no increased work of breathing Chest: wall excursion wnl no abnormal movements no obvious deformities Musculoskeletal:?Normal?? range of motion and strength,?No??tenderness,?No??swelling Skin: Skin is warm, dry and pink,?No??rashes,?No??lesions Neurologic: Awake, alert and oriented X4 Psychiatric: Cooperative, appropriate mood and affect Slit-lamp examination Lids/lashes/lacrimal system: Normal anatomy and contours???none seen??swelling of left upper eyelid Any Lesions??none seen?? Conjunctiva/sclera: White and quiet???none seen??Injection???yes??injection of left??conjunctiva??lesions???none seen?? Cornea: Clear? Epithelial disruptions???yes??scattered??throughout cornea??fluorescein uptake Stromal opacities???none seen?? Endothelial lesions???none seen?? Anterior chamber: Deep? Cell or flare???none seen?? Iris: Round pupil???none seen??Transillumination defects???none seen?? Nodules???none seen??Lens: Clear???none seen?? Nuclear, cortical or subcapsular cataract???none seen?? Anterior vitreous: Inflammation???none seen?? Hemorrhage???none seen?? Pigmented cells???none seen Medical Decision Making: For MDM please see under assessment and plan Procedure No Qualifying Data Assessment/Plan 1.??Corneal abrasion, left??S05.02XA Corneal abrasion most consistent likely with??wear of??contact??Will place patient on ofloxacin as this??appears to be a contact related issue expect patient will likely feel better within 24 to 48 hours if she worsens or does not improve??she is to see her eye doctor or return to the emergency department. Ordered: ofloxacin 0.3% ophthalmic solution, 1 drops, Eye-Left, Soln-Ophth, every 4 hr while awake, Antibiotic Indication Other (specify in order comments), First Dose: 07/26/22 0:46:00 EDT, STAT Discharge Patient, 07/26/22 0:43:00 EDT, Home Independently, Constant Indicator ?? Patient Education Corneal Abrasion Follow Up With When Contact Information Follow up with primary care provider Within 1 to 2 weeks Additional Instructions: Medication Reconciliation Unchanged buprenorphine-naloxone (Suboxone 12 mg-3 mg sublingual film) ?? FLUoxetine ?? levothyroxine ?? lisdexamfetamine (Vyvanse)70 Milligrams. Problem List/Past Medical History Ongoing No qualifying data Historical No qualifying data Medication Administration Given ofloxacin 0.3% ophthalmic solution, 1 drops, Eye-Left. For: Corneal abrasion, left proparacaine 0.5% ophthalmic solution, 2 drops, OPHTH Allergies No Known Allergies Social History Electronic Cigarette/Vaping Electronic Cigarette Use: Never. Tobacco Current everyday tobacco user Tobacco Use:. Electronically Signed on 07/26/22 04:21 AM Saundra Walker MD Emergency department Discharge instructions * Saundra Walker MD: PERFORM Event Display: ED Discharge Information Authored Date: [id number] CAMILLATERRIE :1990 Age:32 years Sex:Female Visit Date:07/25/2022 Primary Care Physician: Renetta Coronel CATEGORY SPECIALIST Discharge Instructions We would like to thank you for allowing us to assist you with your healthcare needs. The following includes patient education materials and information regarding your injury/illness. Diagnosis from Today's Visit Corneal abrasion, left Discharge Vitals Temperature??(Temporal Artery) 97.9 ??F (36.6 ??C) Heart Rate??(Peripheral) 93 Respiratory Rate?? 20 Blood Pressure?? 144/102?? Height?? 66.93 in (170.000 cm) Weight??(Estimated) 160.96 lb (73.00 kg) Allergies No Known Allergies What to Do Next Instructions from Your Care Team If your eye is not improved by Wednesday go to see your eye doctor.?? Take??ofloxacin 1 drop??every 4 hours while awake??x7 days.?? If you worsen or do not improve please return to the emergency department??or see your eye doctor. You Need to Schedule the Following Appointments Follow Up with??Follow up with primary care provider When:??Within 1 to 2 weeks You were treated today on an emergency basis; it may be mcguire to contact your primary care provider to notify them of your visit today. You may have been referred to your regular doctor or a specialist, please follow up as instructed. If your condition worsens or you can't get in to see the doctor, contact the Emergency Department. Medications What How Much When Instructions Next Dose Unchanged buprenorphine-naloxone (Suboxone 12 mg-3 mg sublingual film) Unchanged FLUoxetine Unchanged levothyroxine Unchanged lisdexamfetamine (Vyvanse) 70 Milligrams [employer] Corneal Abrasion A corneal abrasion is a scratch or injury to the clear covering over the front of the eye (cornea).Your cornea forms a clear dome that protects your eye and helps to focus your vision. Your cornea is made up of many layers, but the surface layer is one of the most sensitive tissues in your body. Acorneal abrasion can be very painful. If a corneal abrasion is not treated, it can become infected and cause an ulcer. This can lead to scarring. A scarred cornea can affect your vision. Sometimes abrasions come back in the same area, even after the original injury has healed. What are the causes? This condition may be caused by: ? A placement interviewer the eye. ? A gritty or irritating substance (foreign body) in the eye. ? Excessive eye rubbing. ? Very dry eyes. ? Certain eye infections. ? Contact lenses that fit poorly or are worn for a long period of time. You can also injure your cornea when putting contact lenses in your eye or taking them out. ? Eye surgery. ? Certain cornea problems may increase the chance of a corneal abrasion. Sometimes, the cause is not known. What are the signs or symptoms? Symptoms of this condition include: ? Eye pain. The pain may get worse when you open and close your eye or when you move your eye. ? A feeling of something stuck in your eye. ? Tearing, redness, and sensitivity to light. ? Having trouble keeping your eye open, or not being able to keep it open. ? Blurred vision. ? Headache. How is this diagnosed? You may work with a health care provider who specializes in diseases and conditions of the eye (human factors scientist). This condition may be diagnosed based on your medical history, symptoms, and an eye exam. Before the eye exam, numbing drops may be put into your eye. You may also have dye put in your eye with a dropper or a small paper strip. The dye makes the abrasion easy to see when your human factors scientist examines your eye with a light. Your human factors scientist may look at your eye through an eye scope (slit lamp). How is this treated? Treatment may vary depending on the cause of your condition, and it may include: ? Washing out your eye. ? Removing any foreign bodies that are in your eye. ? Using antibiotic drops or ointment to treat or prevent an infection. ? Using a dilating drop to decrease inflammation and pain. ? Using steroid drops or ointment to treat redness, irritation, or inflammation. ? Applying a cold, wet cloth (cold compress) or ice pack to ease the pain. ? Taking pain medicine by mouth (orally). In some cases, an eye patch or bandage soft contact lens might also be used. An eye patch should not be used if the corneal abrasion was related to contact lens wear as it can increase the chance of infection in these eyes. Follow these instructions at home: Medicines ? Use eye drops or ointments as told by your health care provider. ? If you were prescribed antibiotic drops or ointment, use them as told by your health care provider.Do not stop using the antibiotic even if you start to feel better. ? Take ptzs-svm-fdguspq and prescription medicines only as told by your health care provider. ? Ask your health care provider if the medicine prescribed to you: ? Requires you to avoid driving or using heavy machinery. ? Can cause constipation. You may need to take these actions to prevent or treat constipation: ? Drink enough fluid to keep your urine pale yellow. ? Take ozxe-crc-ptjjouu or prescription medicines. ? Eat foods that are high in fiber, such as beans, whole grains, and fresh fruits and vegetables. ? Limit foods that are high in fat and processed sugars, such as fried or sweet foods. Eye patch use ? If you have an eye patch, wear it as told by your health care provider. ? Do not drive or use machinery while wearing an eye patch. Your ability to rn otolaryngology distances will be impaired. ? Follow instructions from your health care provider about when to remove the patch. General instructions ? Ask your health care provider whether you can use a cold compress on your eye to relieve pain. ? Do not rub or touch your eye. Do not wash out your eye. ? Do not wear contact lenses until your health care provider says that this is okay. ? Avoid bright light and eye strain. ? Keep all follow-up visits as told by your health care provider. This is important for preventing infection and vision loss. Contact a health care provider if: ? You continue to have eye pain and other symptoms for more than 2 days. ? You have new symptoms, such as worse redness, tearing, or discharge. ? You have discharge that makes your eyelids stick together in the morning. ? Your eye patch becomes so loose that you can blink your eye. ? Symptoms return after the original abrasion has healed. Get help right away if: ? You have severe eye pain that does not get better with medicine. ? You have vision loss. Summary ? A corneal abrasion is a scratch or injury to the clear covering over the front of the eye (cornea). ? It is important to get treatment for a corneal abrasion. If this problem is not treated, it can affect your vision. ? Use eye drops or ointments as told by your health care provider. ? If you have an eye patch, do not drive or use machinery while wearing it. Your ability to rn otolaryngology distances will be impaired. ? Let your health care provider know if your symptoms continue for more than 2 days. This information is not intended to replace advice given to you by your health care provider. Make sure you discuss any questions you have with your health care provider. Document Revised: 07/28/2019 Document Reviewed: 07/28/2019 [employer] Patient Education ?? 2021 [employer] Tests Performed Medications and Immunizations Administered Given proparacaine 0.5% ophthalmic solution, 2 drops, OPHTH Patient/Certified Mortician Signature Patient Name:TERRIE SAMPSON I have received this information and my questions have been answered. Patient/Certified Mortician Name: Patient/Certified Mortician Signature: Relationship to Patient: Witness Name/Signature: Date: Electronically Signed on: 07/26/2022 00:44 EDTSigned by:[facility] Patient Care team information Care Team Personnel Name: Renetta Coronel NP Position: No Access Member Role: Primary Care Physician Address: Address: [facility] [address], [place] [address] Name: Jignesh Watson RN Position: Nurse Member Role: ED Nurse Name: Saundra Walker MD Position: Physician Member Role: ED Physician Address: Address: [address] [place] [id number] Care Team Related Persons Name: ANIBAL AVIVA Address: Home
--- OUTSIDE RECORDS SUMMARY | 2023-11-12 16:53 | XMS_ITS | Encounter Summary ---
Author Organization [facility] Address [address] [place] [address] Care Team Providers Care Senior Support Engineer Name Role Phone Unknown, Provider Primary Care Provider Encounter Details Date Type Department Care Team (Late st Contact Info) Description 03/02/[address] [facility] Pathology & Laboratory Medicine - [facility] [address] [place] [address] Outr Resulting Lab, Provider Social History Tobacco [...] Procedure Name Priority Date/Time Associated Diagnosis Comments CORTISOL Routine 03/02/2022 9:30 EST documented in this encounter Results * CORTISOL (03/02/2022 9:30 EST) Cortisol 13 See Note ug/dL 03/02/2022 22:56 EST [facility] Comment: NOTE: Reference Ranges (from [facility] IFU): Collected Before 10:00 AM: ??4 - 23 ug/dL Collected After 5:00 PM: ?2 - 14 ug/dL The results of this assay can be falsely elevated due to the consumption of Biotin. Blood VENOUS BLOOD / Unknown 03/02/2022 9:30 EST 03/02/2022 21:58 EST Provider Outr Resulting Lab CHEMISTRY & BLOOD GAS ORDERABLES [facility] [address] [place] [id number] documented in this encounter Visit Diagnoses Not on filedocumented in this encounter Care Teams Senior Support Engineer Relationship Specialty Start Date End Date Unknown, Provider, PCP - General 09/23/17 documented as of this encounter
--- OUTSIDE RECORDS SUMMARY | 2023-11-12 16:53 | XMS_ITS | Encounter Summary ---
Author Organization [facility] Address [address] [place] [address] Care Team Providers Care Merchandising Manager Name Role Phone Unknown, Provider Primary Care Provider Encounter Details Date Type Department Care Team (Late st Contact Info) Description 09/22/2017 Results Only [facility] [phone] Renetta Rodriguez, CHAPERON [address] [place] [address] Social History Tobacco Use Types Packs/Day Years Used Date Smoking Tobacco: Never Assessed Sex and Gender Information Value Date Recorded Sex Assigned at Not on file Gender Identity Not on file Sexual Orientation Not on file documented as of this encounter Plan of Treatment Not on file documented as of this encounter Procedures Procedure Name Priority Date/Time Associated Diagnosis Comments PAP TEST- RESULT ONLY Routine 09/22/2017 0:00 EDT documented in this encounter Results * PAP TEST- RESULT ONLY (09/22/2017 0:00 EDT) Pathology Report: CYTOPATHOLOGY REPORT Reports generated via electronic interface contain original data; however they are lacking the format of the original report. Caution should be taken when reading/interpreti ng unformatted reports. Name: ? TESHA RODRIGUEZ ? Accession #: ? [id number] : ? 1990 (Age: 27) ??F ?Collect Date: ? 09/22/2017 Location: ? [facility] ? Receive Date: ? 09/24/2017 Provider: ?RENETTA RODRIGUEZ CHAPERON Copy to: ? Specimen/Source: ?Pap Test, Cervix, ThinPrep Imaging System with manual evaluation Last Menstrual Period: ? Other: ? Additional clinical information: Z00.00 Z12.4 Z11.51 Previous NIL Pap(s) ? SPECIMEN ADEQUACY ? Satisfactory for Evaluation - transformation zone component present GENERAL CATEGORIZATION ? Negative for Intraepithelial Lesion or Malignancy ? Document reviewed and electronically signed by: ? PATRICIO Snider(ASCP) ? Report Date: ??09/30/2017 13:[address] [facility] 09/22/2017 09/24/2017 Renetta Rodriguez NP PATHOLOGY ORDERABLES [facility] [address] [place] [address] documented in this encounter Visit Diagnoses Not on filedocumented in this encounter Care Teams Merchandising Manager Relationship Specialty Start Date End Date Unknown, Provider, PCP - General 09/23/17 documented as of this encounter
--- OUTSIDE RECORDS SUMMARY | 2023-11-12 16:53 | XMS_ITS | Clinical Summary ---
Author Organization [facility] Address [address] [place] [address] Care Team Providers Care Manager Sign Name Role Phone Unknown, Provider Primary Care Provider [phone] Social History Tobacco Use Types Packs/Day Years Used Date Smoking Tobacco: Never Assessed Sex and Gender Information Value Date Recorded Sex Assigned at Not on file Gender Identity Not on file Sexual Orientation Not on file Plan of Treatment Health Maintenance Due Date Last Done Comments Hepatitis C Screen 1990 Hepatitis B Vaccine (1 of 3 - 19+ 3-dose series) 07/08 COVID-19 Vaccine (2022-24 season) 2022 Care Teams Manager Sign Relationship Specialty Start Date End Date Unknown, Provider, PCP - General 09/23/17
--- OUTSIDE RECORDS SUMMARY | 2023-11-12 16:53 | XMS_ITS | Encounter Summary ---
Author Organization [facility] Address [address] [place] [address] Care Team Providers Care Microsoft Developer Name Role Phone Unknown, Provider Primary Care Provider [phone] Encounter Details Date Type Department Care Team (Late st Contact Info) Description 03/02/2022 Lab Requisition [facility] Pathology & Laboratory Medicine - [facility] [address], [place] [id number] Outr Resulting Lab, Provider Social History Tobacco [...] Date/Time Associated Diagnosis Comments CORTISOL Routine 03/02/2022 9:00 EST documented in this encounter Results * CORTISOL (03/02/2022 9:00 EST) Cortisol 18 See Note ug/dL 03/02/2022 22:51 EST [facility] Comment: NOTE: Reference Ranges (from OCD IFU): Collected Before 10:00 AM: ??4 - 23 ug/dL Collected After 5:00 PM: ?2 - 14 ug/dL The results of this assay can be falsely elevated due to the consumption of Biotin. Blood VENOUS BLOOD / Unknown 03/02/2022 9:00 EST 03/02/2022 21:58 EST Provider Outr Resulting Lab CHEMISTRY & BLOOD GAS ORDERABLES [facility] [address] [place] [id number] documented in this encounter Visit Diagnoses Not on filedocumented in this encounter Care Teams Microsoft Developer Relationship Specialty Start Date End Date Unknown, Provider, PCP - General 09/23/17 documented as of this encounter
--- OUTSIDE RECORDS SUMMARY | 2023-11-12 16:53 | XMS_ITS | Encounter Summary ---
Author Organization [facility] Address [address] [place] [address] Care Team Providers Care Pilot Supervisor Name Role Phone Unknown, Provider Primary Care Provider Encounter Details Date Type Department Care Team (Late st Contact Info) Description 03/02/2022 Lab Requisition [facility] Pathology & Laboratory Medicine - [facility] [address] [place] [address] Outr Resulting Lab, Provider Social History Tobacco [...] Procedure Name Priority Date/Time Associated Diagnosis Comments VITAMIN D (25,OH) Routine 03/02/2022 8:33 EST CORTISOL Routine 03/02/2022 8:33 EST documented in this encounter Results * CORTISOL (03/02/2022 8:33 EST) Cortisol 13 See Note ug/dL 03/02/2022 22:45 EST [facility] Comment: NOTE: Reference Ranges (from OCD IFU): Collected Before 10:00 AM: ??4 - 23 ug/dL Collected After 5:00 PM: ?2 - 14 ug/dL The results of this assay can be falsely elevated due to the consumption of Biotin. Blood VENOUS BLOOD / Unknown 03/02/2022 8:33 EST 03/02/2022 21:58 EST Provider Outr Resulting Lab CHEMISTRY & BLOOD GAS ORDERABLES [facility] [address] [place] [address] * VITAMIN D (25,OH) (03/02/2022 8:33 EST) 25OH Vitamin D Tot 37 30 - 100 ng/mL 03/03/2022 10:39 EST [facility] Comment: Vitamin D 25,OH Interpretive Ranges: Deficiency: ??<10.0 ng/mL Insufficiency: ??10.0 - 30.0 ng/mL Sufficiency: ??30.0 - 100.0 ng/mL Toxicity: ??>100.0 ng/mL Blood VENOUS BLOOD / Unknown 03/02/2022 8:33 EST 03/02/2022 21:58 EST Provider Outr Resulting Lab CHEMISTRY & BLOOD GAS ORDERABLES [facility] [address] [place] [address] documented in this encounter Visit Diagnoses Not on filedocumented in this encounter Care Teams Pilot Supervisor Relationship Specialty Start Date End Date Unknown, Provider, PCP - General 09/23/17 documented as of this encounter
--- OUTSIDE RECORDS SUMMARY | 2023-11-12 16:53 | XMS_ITS | Continuity of Care Document ---
Author Organization [facility] Address [address] [place] [address] Care Team Providers Care Butt Maker Name Role Phone Nidia Lan Primary Care Physician [phone] Encounter [facility] Date(s): 01/28/22 - 01/28/22 [facility] [address] [place] [address] Discharge Disposition: Home or Self Care Attending Physician: Nidia Lan Admitting Physician: Nidia Lan Referring Physician: Nidia Lan Social History Social History Type Response Sex Female Patient Care team information Personnel Name: Nidia Lan Address: Address: [facility] [address] [place] [address]- [place]
[2023-11-12 18:59] LABS: Abs Immature Grans 0.01 10^3/uL (0.0-0.06); Absolute Basophil Count 0.03 10^3/uL (0.0-0.2); Absolute Eosinophil Count 0.13 10^3/uL (0.0-0.7); Absolute Lymphocyte Count 1.65 10^3/uL (1.2-3.4); Absolute Monocyte Count 0.44 10^3/uL (0.1-0.8); Absolute Neutrophil Count 2.57 10^3/uL (1.2-6.7); Basophils % 0.6 %; Eosinophils % 2.7 %; HCT 37.2 % (36.0-46.0); HGB 13.1 g/dL (11.2-15.7); Immature Grans % 0.2 %; Lymphocytes % 34.2 %; MCHC 35.2 % (32.0-36.0); MCV 91 fL (80-95); MPV 9.8 fL (8.0-11.0); Monocytes % 9.1 %; Neutrophils % 53.2 %; Platelet Count 236 10^3/uL (130-400); RDW 11.9 % (11.7-14.6); RDW-SD 38.6 fL; WBC 4.83 10^3/uL (4.4-10.8)
[2023-11-12 19:07] LABS: C-Reactive Protein < 0.50 mg/dL (<or=0.5)
[2023-11-12 19:09] LABS: ESR 16 mm/hr (0-20)
[2023-11-15 11:46] LABS: Lyme Ab w Rflx to Lyme Confirm Negative (Negative)
[2023-11-17 11:49] LABS: Anaplasma phagocytophilum Negative (Negative); B. miyamotoi PCR Negative (Negative); Babesia divergens/MO-1 Negative (Negative); Babesia duncani Negative (Negative); Babesia microti Negative (Negative); Ehrlichia chaffeensis Negative (Negative); Ehrlichia ewingii/canis Negative (Negative); Ehrlichia muris eauclairensis Negative (Negative)
== END 2023-11-12 16:52 | disposition home or self-care (01) ==
LOC: NCHCN 16:51
PROVIDERS: PCP Nurse Practitioner Family; Visit Provider Nurse Practitioner Family
DX: R53.83 Other fatigue (principal); M79.18 Myalgia, other site
CPT/HCPCS: 85652; 87798; 85025; 86140; 86618

== ENCOUNTER 2024-01-14 16:48 | Outpatient (REF) | payer MEDICAID, SELFPAY | END 2024-01-14 16:49 | disposition home or self-care (01) | LOC: LBN 16:48 | PROVIDERS: PCP Nurse Practitioner Family; Visit Provider Nurse Practitioner Family | DX: R82.998 Other abnormal findings in urine (principal); B96.29 Other Escherichia coli [E. coli] as the cause of diseases classified elsewhere | CPT/HCPCS: 87077; 87086; 87186 ==

== ENCOUNTER 2024-05-10 13:53 | Outpatient (REF) | payer MEDICAID, SELFPAY ==
[2024-05-11 13:30] LABS: Chlamydia Result Negative (Negative); GC Result Negative (Negative)
== END 2024-05-10 13:54 | disposition home or self-care (01) ==
LOC: LBN 13:53
PROVIDERS: PCP Nurse Practitioner Family; Visit Provider Nurse Practitioner Family
DX: N89.8 Other specified noninflammatory disorders of vagina (principal); Z12.4 Encounter for screening for malignant neoplasm of cervix; Z11.51 Encounter for screening for human papillomavirus (HPV); G47.30 Sleep apnea, unspecified; G43.109 Migraine with aura, not intractable, without status migrainosus; F90.1 Attention-deficit hyperactivity disorder, predominantly hyperactive type; R51.9 Headache, unspecified; F41.8 Other specified anxiety disorders; F43.10 Post-traumatic stress disorder, unspecified; R79.89 Other specified abnormal findings of blood chemistry
CPT/HCPCS: 87491; 87591; 88142; 87480; 87510; 87624; 87660

== ENCOUNTER 2024-09-23 06:05 | Inpatient (IN) | payer MEDICAID, SELFPAY ==
[2024-09-23 06:08] VITALS: BP 127/95; PULSE 103; RESP 18; TEMP 36.7; O2SAT 99
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
--- NOTE | 2024-09-23 06:49 | DI.RAD_ITS ---
Exam(s) XR HAND LT COMPLETE EXAM: XR HAND LT COMPLETE CLINICAL HISTORY: 2nd digit swollen, puncture wound. TECHNIQUE: 2D digital imaging was performed of the left hand. Three views were obtained. AP, lateral and oblique views were obtained. COMPARISON: There are no priors for comparison. FINDINGS: BONES: No acute fracture is present. No bony destructive lesion is seen. JOINTS: No dislocation present. SOFT TISSUE: Normal. No soft tissue gas or foreign body. IMPRESSION: 1. Unremarkable radiographs of the left hand. 2. The preliminary [facility] report was reviewed. DATA REPOSITORY: RADIATION DOSE DELIVERED:
[2024-09-23 07:26] LABS: Abs Immature Grans 0.01 10^3/uL (0.0-0.06); Absolute Basophil Count 0.03 10^3/uL (0.0-0.2); Absolute Eosinophil Count 0.12 10^3/uL (0.0-0.7); Absolute Lymphocyte Count 2.45 10^3/uL (1.2-3.4); Absolute Monocyte Count 0.52 10^3/uL (0.1-0.8); Absolute Neutrophil Count 3.88 10^3/uL (1.2-6.7); Basophils % 0.4 %; Eosinophils % 1.7 %; HCT 37.1 % (36.0-46.0); Immature Grans % 0.1 %; MCV 89 fL (80-95); MPV 8.7 fL (8.0-11.0); Monocytes % 7.4 %; Neutrophils % 55.4 %; Platelet Count 289 10^3/uL (130-400); RBC 4.19 10^6/uL (3.93-5.22); RDW 11.9 % (11.7-14.6); WBC 7.01 10^3/uL (4.4-10.8)
[2024-09-23 07:27] LABS: ESR 14 mm/hr (0-20)
[2024-09-23] MEDS: Acetaminophen 500 MG TAB 1000 MG PO (07:27)
[2024-09-23] MEDS: Ketorolac 15 MG/ML VIAL IVP (07:32)
[2024-09-23 07:42] LABS: C-Reactive Protein < 0.50 mg/dL (<or=0.5)
--- NOTE | 2024-09-23 07:45 | DI.[facility]_ITS ---
PROCEDURE INFORMATION: Exam: XR Left Hand Exam date and time: 09/23/2024 6:45 AM Age: 34 years old Clinical indication: Injury or trauma; Left; Index finger; Injury date: 09/23/24; 2nd digit swollen, puncture wound TECHNIQUE: Imaging protocol: Radiologic exam of the left hand. Views: 3 or more views. COMPARISON: No relevant prior studies available. FINDINGS: Bones/joints: Normal. Soft tissues: Normal. IMPRESSION: 1. No acute findings. 2. And her foreign body Dictated and Authenticated by: Jordan Brooke MD. Orderin Del Soto MD
[2024-09-23] MEDS: PIPERACILLIN/TAZO 3.375 GM in Normal Saline 50 ML IVPB ×2 (07:52→14:20)
[2024-09-23 08:07] LABS: HCG Qual (Serum) Negative
[2024-09-23] MEDS: VANCOMYCIN/WATER (PEG) 1.5 GM/300 ML BAG IVPB (08:32)
--- NOTE | 2024-09-23 08:35 | W.EDPROG ---
Date of service: 09/23/24 Time of Service: 08:35 Medical Decision Making Patient was signed out pending callback from hospitalist. Discussed the case with Dr. Reno, he agrees with the assessment and plan. Patient will be admitted for close monitoring and continued IV antibiotics. Vancomycin and Zosyn have been started. Patient tolerating these well. If patient's symptoms do worsen, Leonela nails is requesting callback. Laboratory workup is otherwise notably reassuring. I have extensively reviewed the treatment plan with the patient. I have addressed all patient concerns at this time. I have also discussed the plan with the admitting physician and they agree with the current assessment and plan and have agreed to assume responsibility for the patient. All parties demonstrate verbal understanding and agreement with our assessment and plan at this time. The documentation in this chart was dictated using [employer] dictation software. Please excuse any dictation errors. Quality:SDOH Health Related Social Needs: Health related social needs food insecurity house/econ circumstance lonely/isolated Health related social needs details Pt states she does not want any assistance at this time, but states she knows to ask for help if needed. Discharge Plan Disposition Patient Disposition: Admit to [facility] Condition: Serious Discharge Details Clinical Impression: Flexor tenosynovitis of finger Primary Care Provider: Renetta Coronel ED Provider: Jignesh Cherry Home Meds and New Rx's Prescriptions: No Action vitamin B complex Tablet 1 tab PO DAILY magnesium oxide 400 mg magnesium capsule 400 mg PO DAILY cholecalciferol (vitamin D3) 25 mcg (1,000 unit) capsule 25 mcg PO DAILY prochlorperazine maleate 5 mg tablet See Rx Instructions PO TID PRN (Reason: headache and/or nausea) Qty: 30 3RF Rx Instructions: 5-10 mg orally three times a day PRN; lisdexamfetamine [Vyvanse] 70 mg capsule 70 mg PO DAILY MDD 70 mg Qty: 30 0RF buprenorphine-naloxone [Suboxone] 12-3 mg film 1 film buccal QAM acetaminophen [Acetaminophen Extra Strength] 500 mg tablet See Rx Instructions PO BID PRN Rx Instructions: 1-2 tabs orally twice a day PRN; sumatriptan succinate 100 mg tablet See Rx Instructions PO .COMPLEX Qty: 8 0RF Rx Instructions: take 1 tab at onset of headache; if no relief, may repeat 1 tab after at least 2 hrs; max = 2 tabs/24 hrs PO levothyroxine 50 mcg tablet See Rx Instructions .ROUTE .COMPLEX Qty: 90 3RF Dose Instruction: TAKE ONE TABLET BY MOUTH EVERY DAY Rx Instructions: TAKE ONE TABLET BY MOUTH EVERY DAY omeprazole 20 mg capsule,delayed release(DR/EC) 20 mg PO DAILY Qty: 90 3RF albuterol sulfate [Ventolin HFA] 90 mcg/actuation HFA aerosol inhaler 2 puff inhalation Q6H PRN (Reason: shortness of breath or wheezing) Qty: 8.5 0RF venlafaxine 75 mg capsule,extended release 24hr See Rx Instructions .ROUTE .COMPLEX Qty: 30 1RF Dose Instruction: TAKE ONE CAPSULE BY MOUTH EVERY DAY Rx Instructions: TAKE ONE CAPSULE BY MOUTH EVERY DAY
[2024-09-23 08:43] VITALS: BP 122/91; PULSE 83; RESP 16; O2SAT 99
[2024-09-23] MEDS: Tetanus & Diphtheria Tox,ADULT 0.5 ML VIAL IM (09:14)
--- NOTE | 2024-09-23 09:30 | W.PC.ACHO ---
Registration Status: REG ER Primary Language: Preferred Language: Sinhala ED Information & Data Chief Complaint Cellulitis 09/23/24 06:35 Triage Note Pt left pointer finger in 09/23/24 06:08 pain. reddened. tip of finger is swollen. Applied clove oil, oragel and antibiotic cream. Pt does not remember injuring finger . Started hurting last night . Medical / Surgical History (Updated 09/23/24 @ 07:59 by Brittany Mathis MD) Seasonal allergies Edema Acute joint pain Shoulder pain, bilateral Elevated TSH Anal high risk HPV DNA test positive ADHD Fatigue Wheezing Headache Most Recent Vital Signs Temperature 36.7 C 09/23/24 06:08 Temperature Source Skin 09/23/24 06:08 Pulse 83 09/23/24 08:43 Pulse Rhythm Regular 09/23/24 08:43 Pulse Strength Normal 09/23/24 08:43 Respiratory Rate 16 09/23/24 08:43 Respiratory Effort Normal 09/23/24 08:43 Respiratory Depth Normal 09/23/24 08:43 Respiratory Pattern Normal 09/23/24 08:43 Blood Pressure 122/91 H 09/23/24 08:43 Blood Pressure Mean 101 09/23/24 08:43 Blood Pressure Position Supine 09/23/24 08:43 Pulse Oximetry 99 09/23/24 08:43 Oxygen Delivery Method Room Air 09/23/24 08:43 Oxygen Flow Rate 0 09/23/24 08:43 Allergies enalapril Allergy (Unknown, Verified 09/23/24 06:11) unknown Precautions Isolation Standard precaution 09/23/24 06:11 Active Medications Generic Name Dose Route Start Last Admin Trade Name Eve PRN Reason Stop Dose Admin Vancomycin/PEG/NADA/Lysine/Water 1.5 gm in 300 mls @ 200 mls/hr 09/23/24 08:15 09/23/24 08:32 Vancocin Injection IVPB 09/23/24 09:44 200 mls/hr NOW ONE Administration IV IV Catheter Type [Right Saline Lock Antecubital] IV Catheter Gauge [Right 20 Antecubital] Diet Orders Category Date Time Status Regular/Normal [DIET] Nutrition 09/23/24 Lunch Active Diagnostics 09/23/24 Range/Units 07:18 WBC 7.01 (4.4-10.8) 10^3/uL RBC 4.19 (3.93-5.22) 10^6/uL Hgb 13.0 (11.2-15.7) g/dL Hct 37.1 (36.0-46.0) % MCV 89 (80-95) fL MCH 31.0 (27.0-33.0) pg MCHC 35.0 (32.0-36.0) % RDW 11.9 (11.7-14.6) % Plt Count 289 (130-400) 10^3/uL MPV 8.7 (8.0-11.0) fL Immature Gran % 0.1 % Neutrophils % 55.4 % Lymphocytes % 35.0 % Monocytes % 7.4 % Eosinophils % 1.7 % Basophils % 0.4 % Nucleated RBC % 0.0 (0.0-0.3) % Absolute Neutrophils 3.88 (1.2-6.7) 10^3/uL Absolute Lymphocytes 2.45 (1.2-3.4) 10^3/uL Absolute Monocytes 0.52 (0.1-0.8) 10^3/uL Absolute Eosinophils 0.12 (0.0-0.7) 10^3/uL Absolute Basophils 0.03 (0.0-0.2) 10^3/uL ESR 14 (0-20) mm/hr C-Reactive Protein < 0.50 (<or=0.5) mg/dL Serum HCG, Qual Negative Intake and Output - 24 Hour Total 09/23/24 06:05 thru 09/23/24 08:32 Intake Total 50 Balance 50 Weight 72.575 kg Intake: IV 50 Falls Risk Assessment History of Falls No History 09/23/24 06:13 Contributing Factors No Factors 09/23/24 06:13 Ambulatory Aids Independent 09/23/24 06:13 Tubes/Lines None 09/23/24 06:13 Gait Evaluation No gait disturbance 09/23/24 06:13 Cognition No cognitive impairment 09/23/24 06:13 Fall Total Score 0 09/23/24 06:13 Level of Risk Standard/Low Risk 09/23/24 06:13 Problems (Updated 09/23/24 @ 07:59 by Brittany Mathis MD) Flexor tenosynovitis of finger (Acute) v v v v v v v v v Sending and/or Receiving Nurses: Please use comment section below to note any information pertinent to the patient hand-off not included above. Information / Comments: PT arrives to 216 from ED w/o incident Report received from: MARLYS Walters
[2024-09-23 10:33] VITALS: BP 136/96; PULSE 76; RESP 17; TEMP 37.5; O2SAT 97
[2024-09-23 11:23] VITALS: BP 136/96; PULSE 76; RESP 17; TEMP 37.5; O2SAT 97
[2024-09-23] MEDS: Nicotine 4 MG GUM CH (17:20)
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
[2024-09-23 18:14] VITALS: BP 150/90; PULSE 81; RESP 18; TEMP 37; O2SAT 96
--- NOTE | 2024-09-23 19:40 | NUR.NOTE ---
Patient has requested to have iv removed and she states she is leaving hospital against medical advice. I informed Dr Hedrick and nursing purification supervisor. I informed patient Dr Hedrick was coming in to speak with her regarding her need for IV antibiotic's and patient declines to wait and Boyfriend is in room and witnessed me telling her dangers of leaving and patient stated she is aware of risks and wishes to leave anyway. IV removed intact and dressing applied. Patient left at 19:47 ecsorted by [facility] .Nursing Note:
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
--- NOTE | 2024-09-24 08:24 | PDOC.CMPRO ---
Date of service: 09/24/24 Time of Service: 08:25 Care Management Progress Note Progress Note Text Progress Note Text: Norma was admitted yesterday with possible tenosynovitis of left index finger. After a few doses of IV antibiotics she stated she felt better and left AMA. She would not wait to be seen and evaluated by the provider or for any prescriptions. She will need to follow up with her PCP for any additional antibiotic therapy. Social Determinants of Health Screening Social Determinants of health last assessed in clinic: 09/24/24 Will the Patient Participate in the Screening?: Yes Do you worry about having a steady place to live?: no Problems where you live: no known problems In the past 12 months, have you had to go without electric, gas, oil or water in your home?: no 1. Within the past 12 months, we worried whether our food would run out before we got money to buy more.: Don't know/refused 2. Within the past 12 months, the food we bought just didn't last and we didn't have money to get more.: Don't know/refused Has lack of transportation kept you from medical appointments or from doing things needed for daily living?: yes Has anyone in your life made you feel unsafe or unsupported?: no How hard is it for you to pay for the very basics like food, housing, medical care, and heating? Would you say it is:: Not hard at all Do you want help finding or keeping work or a job?: I do not need or want help If for any reason you need help with day-to-day activities such as bathing, preparing meals, shopping, managing finances, etc., do you get the help you need?: I don?t need any help How often do you feel lonely or isolated from those around you?: Sometimes Do you speak a language other than Bolivian at home?: No Does the patient want assistance with any of the above?: Yes Comments: would like help with transportation, has tried RCT with minimal success, and reports to this nurse that the some of the drivers couldn't keep their hands to themselves Health Related Social Needs Health related social needs: transportation insecurity (Z59.82) and feeling lonely/isolated (Z60.8) Health related social needs details: feels well supported by s/o, would like help with transportation
== END 2024-09-23 19:47 | disposition left against medical advice (07) | DRG 558 ==
LOC: ER 09:04 → MS 10:29
PROVIDERS: Student in an Organized Health Care Education/Training Program; Admitting Provider Family Medicine; Emergency Provider Student in an Organized Health Care Education/Training Program; PCP Nurse Practitioner Family; Responsible Provider Family Medicine; Visit Provider Family Medicine
DX: M65.142 Other infective (teno)synovitis, left hand (principal); F17.210 Nicotine dependence, cigarettes, uncomplicated; F41.8 Other specified anxiety disorders; J45.909 Unspecified asthma, uncomplicated; E03.9 Hypothyroidism, unspecified; Z79.899 Other long term (current) drug therapy; G43.909 Migraine, unspecified, not intractable, without status migrainosus; G47.30 Sleep apnea, unspecified; R60.0 Localized edema; F43.10 Post-traumatic stress disorder, unspecified; F90.9 Attention-deficit hyperactivity disorder, unspecified type
CPT/HCPCS: 00123; 36415; 85652; 90471; 90714; 96365; 96366; 96367; 96375; 99285; 73130; 84703; 85025; 86140; 99235; J1885; J2543; J3372

== ENCOUNTER 2024-10-11 09:02 | Outpatient (CLI) | payer MEDICAID, SELFPAY ==
--- NOTE | 2024-10-11 09:00 | RT.EKG_ITS ---
APPROVED REPORT Exam: Resting ECG Reason for Exam: Medication management Patient Location: O HR:71 bpm ECG Measurements Heart Rate 71 AXIS ND 113 P 77 QRSd 74 QRS 70 QT 391 T 23 QTc 425 Conclusion Sinus rhythm...normal P axis, V-rate 50- 99 Borderline short ND interval...ND int <120mS Probable left atrial enlargement...P >50mS, <-0.10mV V1 RSR' in V1 or V2, probably normal variant...small R' only
== END 2024-10-11 09:03 | disposition home or self-care (01) ==
LOC: DI.KIM 09:02
PROVIDERS: PCP Nurse Practitioner Family; Visit Provider Nurse Practitioner Family
DX: Z79.899 Other long term (current) drug therapy (principal); I51.7 Cardiomegaly
CPT/HCPCS: 93010